=== PATIENT | female | born 1945 | race Hispanic/Latino ===

== ENCOUNTER 2019-06-07 23:24 | Inpatient (IN) | payer SELFPAY ==
--- NOTE | 2019-06-07 23:58 | RAD ---
XR Chest 1 View Portable History: Chest pain Comparison: None. Findings: Lungs are hyperinflated. No pneumothorax. No effusion. Cardiac silhouette and mediastinal c ontours appear within normal limits. Scarring both lung bases. No acute osseous abnormality. Impression: Lung hyperinflation suggesting obstructive pulmonary disease otherwise no acute intrathor acic abnormality.
[2019-06-08] MEDS ORDERED: methylPREDNISolone Sod Succ/PF 125 MG/2 ML VIAL ONE (00:03)
[2019-06-08 00:18] LABS: #Eosinphils 0.9 thou/uL (0.0-0.7); #Lymphocytes 3.3 thou/uL (1.20-3.40); #Monocytes 1.4 thou/uL (0.11-0.59); #Neutrophils 5.6 thou/uL (1.40-6.50); %Basophils 0.4 % (0.0-1.0); %Eosinophils 8.3 % (0.0-10.0); %Lymphocytes 29.2 % (21.0-51.0); %Monocytes 12.5 % (0.0-10.0); %Neutrophils 49.5 % (42.0-75.0); Hemoglobin 12.3 g/dL (12.0-16.0); Mean Corpuscular HGB CONC 34.5 g/dL (32.0-36.0); Mean Corpuscular Volume 95.8 fL (78.0-98.0); Mean Platelet Volume 7.3 fL (7.4-10.4); Platelet Count 484 thou/uL (130-400); RBC Distribution Width 10.5 % (11.5-14.5); Red Blood Cell (RBC) Count 3.72 mill/uL (4.20-5.40); White Blood Cell (WBC) Count 11.3 thou/uL (4.8-10.8)
[2019-06-08 00:32] LABS: ALT (SGPT) 11 U/L (8-55); AST (SGOT) 18 U/L (5-34); Alkaline Phosphatase 122 U/L (40-150); Anion Gap 15 mmol/L (10-20); BUN (Urea Nitrogen) 28 mg/dL (9.8-20.1); Bilirubin, Total 0.2 mg/dL (0.2-1.2); CK (CPK) 46 U/L (29-168); Calc. Creatinine Clearance 0 mL/min (70-130); Calcium 9.5 mg/dL (7.8-10.44); Carbon Dioxide 23 mmol/L (23-31); Chloride 101 mmol/L (98-107); Estimated GFR-MDRD 25; Globulin 3.4 g/dL (2.4-3.5); Glucose 132 mg/dL (83-110); Lipase 92 U/L (8-78); Potassium 4.1 mmol/L (3.5-5.1); Protein, Total 7.4 g/dL (6.0-8.3); Sodium 135 mmol/L (136-145)
[2019-06-08] MEDS ORDERED: Aspirin Chewable 81 MG TAB ONE (00:50)
[2019-06-08] MEDS ORDERED: Acetaminophen 325 MG TAB PO PRN (01:36)
--- NOTE | 2019-06-08 01:45 | PDOC.FPRHP ---
- History of Present Illness Chief Complaint: SOB, cough History of Present Illness: 74 y/o F with pmhx of asthma, and bronchitis presents to the ED with SOB and cough that worsened 06/07 at 1999. She states she has been in the hospital for "asthma" X3 times over the past X3 years, last one being X6 months ago. PT is from [place], and has cooked her entire life on a wood burning stove. She has no prior exposure to smoking or second hand smoke. Pt has a productive cough, with increased sputum production, white in color. Pt denies any N/V/D. Pt has associated chest pain that radiates to her back. She denies any diaphoresis, but admits to occasional dizziness without LOC with this pain. ED Course: Pt has O2 saturation in the 80's on arrival. Given duonebs and NC O2, brought saturation up to 96%. Given Levoquin in the ED. Received ASA. No CTA ordered because CKD. - Allergies/Adverse Reactions Allergies Allergy/AdvReac Type Severity Reaction Status Date / Time No Known Drug Allergies Allergy Verified 06/08/19 02:36 - History PMHx: Bronchitis, Asthma PSHx: None FHx: Father had asthma Social: from [place], cooks on wood fire oven. Denies any smoking, etoh, and drug use. - Review of Systems General: reports: night sweats. denies: fever/chills, fatigue ENT: denies: nasal congestion, rhinorrhea Respiratory: reports: cough, congestion, shortness of breath Cardiovascular: reports: chest pain. denies: palpitation, edema, paroxysmal nocturnal dyspnea, orthopnea Gastrointestinal: reports: nausea. denies: vomiting, diarrhea, constipation, abdominal pain Genitourinary: denies: incontinence, dysuria Skin: denies: rashes, jaundice Musculoskeletal: denies: pain, swelling Neurological: denies: numbness, syncope - Vital signs BP: 159/88 HR: 100 RR: 20 Tmax: Pox: 97% on 2L NC Wt: 42 kg - Physical Exam Constitutional: NAD, awake, alert and oriented, well developed HEENT: normocephalic and atraumatic, PERRLA, EOMI, conjunctiva clear, no scleral icterus, grossly normal vision, grossly normal hearing, MMM, oropharynx clear Neck: supple, FROM, trachea midline, no LAD, no JVD Chest: no-tender to palpation, no lesions Heart: RRR, normal S1/S2, no murmurs/rubs/gallops, pulses present, no edema Lungs: no respiratory distress, no rales/rhonchi, no retractions -Lungs: Diminished breath sounds diffusely Abdomen: soft, bowel sounds present, no masses/distention -Abdomen: slightly tender to palpation in epigastric area. Musculoskeletal: normal structure, normal tone, ROM grossly normal Neurological: no focal deficit, normal sensation Skin: no rash/lesions, good turgor, no jaundice Heme/Lymphatic: no unusual bruising or bleeding, no purpura, no petechia Psychiatric: normal mood and affect, good judgment and insight, intact recent and remote memory FMR H&P: Results - Labs Result Diagrams: 06/07/19 00:01 06/08/19 01:56 Lab results: WBC 11.3 thou/uL (4.8-10.8) H 06/07/19 00:01 Hgb 12.3 g/dL (12.0-16.0) 06/07/19 00:01 Hct 35.6 % (36.0-47.0) L 06/07/19 00:01 MCV 95.8 fL (78.0-98.0) 06/07/19 00:01 Plt Count 484 thou/uL (130-400) H 06/07/19 00:01 Neutrophils % 49.5 % (42.0-75.0) 06/07/19 00:01 Sodium 135 mmol/L (136-145) L 06/07/19 00:01 Potassium 4.1 mmol/L (3.5-5.1) 06/07/19 00:01 Chloride 101 mmol/L (98-107) 06/07/19 00:01 Carbon Dioxide 23 mmol/L (23-31) 06/07/19 00:01 BUN 28 mg/dL (9.8-20.1) H 06/07/19 00:01 Creatinine 1.95 mg/dL (0.6-1.1) H 06/07/19 00:01 Glucose 132 mg/dL (83-110) H 06/07/19 00:01 Calcium 9.5 mg/dL (7.8-10.44) 06/07/19 00:01 Total Bilirubin 0.2 mg/dL (0.2-1.2) 06/07/19 00:01 AST 18 U/L (5-34) 06/07/19 00:01 ALT 11 U/L (8-55) 06/07/19 00:01 Alkaline Phosphatase 122 U/L (40-150) 06/07/19 00:01 Creatine Kinase 46 U/L (29-168) 06/07/19 00:01 Serum Total Protein 7.4 g/dL (6.0-8.3) 06/07/19 00:01 Albumin 4.0 g/dL (3.4-4.8) 06/07/19 00:01 Lipase 92 U/L (8-78) H 06/07/19 00:01 - EKG Interpretation EKG: Sinus Tach with PVC's - Radiology Interpretation Chest x-ray Status: report reviewed by me FMR H&P: A/P - Problem List (1) Acute respiratory failure with hypoxia Current Visit: Yes Status: Acute Code(s): J96.01 - ACUTE RESPIRATORY FAILURE WITH HYPOXIA (2) COPD exacerbation Current Visit: Yes Status: Acute Code(s): J44.1 - CHRONIC OBSTRUCTIVE PULMONARY DISEASE W (ACUTE) EXACERBATION (3) History of asthma Current Visit: Yes Status: Acute Code(s): Z87.09 - PERSONAL HISTORY OF OTHER DISEASES OF THE RESPIRATORY SYSTEM (4) CKD stage 4 Current Visit: Yes Status: Acute - Plan 74 y/o F admitted to inpatient for Acute Hypoxic respiratory Failure, most likely secondary to COPD exacerbation. 1. Acute Hypoxic Respiratory Failure - Continue O2 per nasal canula as needed - Ordered Duonebs Q4H deysi, and Q4H PRN - Ordered D-dimer - Consider V/Q Scan if D-Dimer elevated. CTA contraindicated in her CKD. 2. Acute COPD Exacerbation Vs Asthma Exacerbation - Increased Sputum production, cough, age >65 - Continue duonebs - Ordered Rocephin Q24H 3. CKD Stage 4 - GFR 25 - NS IVF @ 60 ml/hr 4. Hx of Asthma Disposition/LOS: Stable Continue Duonebs and antibiotic therapy. Monitor for respiratory improvement. Stay at least 2 days FMR H&P: Upper Level - Pertinent history [place] 74 yo female presents for evaluation of cough, SOB, and chest pain. Patient is a [place] of [place] and just recently came to [place] to visit. Patient has no smoking history, but cooked for 50 years over a wood burning stove/fireplace. She has had lung problems for about the last 3-4 years and her family had her discontinue cooking due to that reason. Please see human resource intern note above for further information. General: Female appears stated age, NAD HEENT: Moist mucous membranes CV: Tachycardic rate and regular rhythm, no murmurs Respiratory: CTA-bilaterally, diminished breath sounds throughout. Abdomen: Soft, nontender, no distention Normoactive BS Extremities: Moving all four symmetrically, no edema Neuro: No focal deficits Psych: Responds appropriately. Strictly Barbadian speaking - Plan Date/Time: 06/08/19 7235 I, Kaleb Peña MD, have evaluated this patient and agree with findings/ plan as outlined by human resource intern resident. Pertinent changes/additions are listed here. 1. COPD exacerbation - Symptoms improved with treatment in ED - Order D-dimer and if positive will get V/Q scan due to renal function to rule out PE - Continue steroids - Will change antibiotics to Rocephin due to renal impairment. - Ordered Quantiferon Gold to rule out TB 2. Chest Pain - Unlikely cardiac in nature - Continue to trend troponins - Likely secondary to lung etiology 3. CKD - CKD vs MATTHIEU - No known baseline - Recheck BMP - Gentle IVF NS @ 60 4. Hyponatremia - 135 on admission - IVF as above - Recheck BMP PCP: OOT CODE STATUS: FULL CODE Disposition: Stable, will admit for continued monitoring and treatment. Addendum - Attending - Attending Attestation Date/Time: 06/08/19 7636 I personally evaluated the patient and discussed the management with Dr. Frank. I agree with and repeated the History, Examination, Assessment and Plan documented above with any addition or exceptions noted below. Patient says she is markedly improved form admission. Denies any cp/sob. Does still have some cough. No recent f/c/hemoptysis. On exam she has a prolonged exp phase with wheezes. COPD exacerbation -d/c rocephin and change to azithro -continue nebs -will need controller upon d/c -I feel PE very unlikely, but d-dimer elevated and v/q order noted and performed MATTHIEU vs CKD -will send PTH in AM Hopeful d/c in AM
[2019-06-08 02:26] VITALS: BMI 19.5
[2019-06-08] MEDS ORDERED: Sodium Chloride 0.9% 1,000 ML IV SCH (02:30)
[2019-06-08 02:36] LABS: Anion Gap 15 mmol/L (10-20); BUN (Urea Nitrogen) 27 mg/dL (9.8-20.1); Calc. Creatinine Clearance 18 mL/min (70-130); Calcium 8.2 mg/dL (7.8-10.44); Carbon Dioxide 19 mmol/L (23-31); Chloride 106 mmol/L (98-107); Estimated GFR-MDRD 30; Glucose 208 mg/dL (83-110); Potassium 3.7 mmol/L (3.5-5.1); Sodium 136 mmol/L (136-145)
[2019-06-08] MEDS ORDERED: cefTRIAXone\\ROCEPHIN 1 GM in Sodium Chloride 0.9% 100 ML IVPB SCH (03:00)
[2019-06-08] MEDS ORDERED: methylPREDNISolone Sod Succ 40 MG VIAL IVP SCH ×2 (06:00)
[2019-06-08] MEDS ORDERED: Prevnar 13-Val Conj/PF 0.5 ML SYRINGE IM ONE (09:00)
[2019-06-08] MEDS ORDERED: ISOVUE-370 76%-LOCM 1 ML ONE (09:40)
[2019-06-08] MEDS: Heparin 5,000 UNITS/ML VIAL SC SCH ×3 (10:01→20:41)
--- NOTE | 2019-06-08 12:04 | NM ---
VQ SCAN: Date: 06/08/19 HISTORY: Elevated D-Dimer. TECHNIQUE: A ventilation perfusion scan was performed using 9.6 mCi Xenon-133 by inhalation for the ventilation study followed by the intravenous administration of 6.6 mCi technetium-99m MAA for the perfusion scan . FINDINGS: Correlation is made with the chest radiograph from the previous night. There is fairly homogeneous tracer distribution at the lung rey on the ventilation study, with tra cer retention on the washout phase consistent with COPD. There is inhomogeneous tracer distribution in the lungs on the perfusion scan with nonsegmental defec ts. There is a subsegmental mismatched perfusion defect in the lateral basal segment of the left lower lo be. IMPRESSION: Intermediate probability for pulmonary embolism. POS: CONY
--- NOTE | 2019-06-08 15:17 | CT ---
CT PULMONARY ANGIOGRAM WITH IV CONTRAST AND 3-D POSTPROCESSING: HISTORY:Chest pain, shortness of breath, abnormal VQ scan from same date FINDINGS: There is good contrast opacification of the pulmonary arterial vasculature without filling defects to suggest pulmonary embolism. The thoracic aorta is well opacified without aneurysm or dissection. No pleural or pericardial effusions are seen. No pneumothoraces, focal areas of consolidation are noted. There is 8 mm nodule in the left lower lob e. There are degenerative changes in the spine. IMPRESSION: 1. No CT evidence of pulmonary embolism. 2. Indeterminate 8 mm nodule in the left lower lobe. This should be evaluated with a PET scan. Code T Code LN
[2019-06-08] MEDS: guaiFENesin ER 600 MG TAB PO SCH (20:42)
[2019-06-08] MEDS ORDERED: Docusate 100 MG CAP PO PRN (21:50)
[2019-06-08] MEDS ORDERED: Dextrose 50% Abboject 50 ML SYRINGE IVP PRN (22:41)
[2019-06-08] MEDS ORDERED: HumaLOG 300 UNITS/3 ML VIAL SC PRN (22:41)
[2019-06-08] MEDS ORDERED: Dextrose 5% in Water 1,000 ML IV PRN (22:41)
[2019-06-09 07:08] LABS: Anion Gap 16 mmol/L (10-20); BUN (Urea Nitrogen) 34 mg/dL (9.8-20.1); Calc. Creatinine Clearance 19 mL/min (70-130); Calcium 9.3 mg/dL (7.8-10.44); Carbon Dioxide 22 mmol/L (23-31); Chloride 99 mmol/L (98-107); Estimated GFR-MDRD 31; Glucose 165 mg/dL (83-110); Potassium 4.6 mmol/L (3.5-5.1); Sodium 132 mmol/L (136-145)
[2019-06-09] MEDS ORDERED: predniSONE 20 MG TAB PO SCH (08:00)
[2019-06-09] MEDS ORDERED: Azithromycin 250 MG TAB PO SCH (09:00)
--- NOTE | 2019-06-09 09:08 | PDOC.FM ---
- Subjective Subjective: pt resting comfortably in bed, denies SOB or CP - Objective Vital Signs & Weight: Vital Signs (12 hours) Temp Pulse Resp BP BP Pulse Ox 06/09/19 07:28 97 06/09/19 07:27 94 16 97 06/09/19 07:16 98.1 F 103 H 18 105/51 L 95 06/09/19 04:00 98.2 F 101 H 18 111/56 L 99 06/09/19 03:14 103 H 16 96 06/08/19 23:30 110 H 16 95 Weight Admit Weight 38.187 kg Weight 39.122 kg I&O: 06/08/19 06/09/19 06/10/19 06:59 06:59 06:59 Intake Total 300 1760 Output Total 450 1800 Balance -150 -40 Result Diagrams: 06/07/19 00:01 06/09/19 05:32 Phys Exam - Physical Examination Constitutional: NAD HEENT: moist MMs Neck: no JVD Respiratory: clear to auscultation bilateral Cardiovascular: RRR, no significant murmur Gastrointestinal: no distention Musculoskeletal: pulses present Neurological: moves all 4 limbs Psychiatric: normal affect Dx/Plan (1) CKD stage 4 Status: Acute (2) COPD exacerbation Code(s): J44.1 - CHRONIC OBSTRUCTIVE PULMONARY DISEASE W (ACUTE) EXACERBATION Status: Acute (3) History of asthma Code(s): Z87.09 - PERSONAL HISTORY OF OTHER DISEASES OF THE RESPIRATORY SYSTEM Status: Acute - Plan Plan: COPD exacerbation - Symptoms improved with treatment in ED, Continue steroids/azithro - CTA neg for PE - proventil for outpt use, mucinex Chest Pain - Likely secondary to lung etiology CKD vs MATTHIEU - stable, most likely CKD - outpt workup Hyponatremia- resolved PCP: OOT CODE STATUS: FULL CODE Disposition: DC today Addendum - Attending - Attending Attestation Date/Time: 06/09/19 8962 I personally evaluated the patient and discussed the management with Dr. Lopez. I agree with and repeated the History, Examination, Assessment and Plan documented above with any addition or exceptions noted below. No f/c/cp/sob. Decreased cough. She says she feels markedly better. Her exam is now with clear lungs. COPD exac -complete course of pred/azithro -will rx generic inh steroid as tiotropium likely too expensive -albuterol PRN CKD III -follow up with PCP Lung nodule -extensive discussion with family in [place] and [place] that radiology has recommended a PET scan. They live close to [facility] and believe they can follow up with a scan there. I have discussed the possibility of malignancy and they voice understanding and they prefer to follow up there. Hyperglycemia can be follow by PCP. She has a flight in the next week. I have asked for a 6mwt to be performed and will rx oxygen if necessary.
[2019-06-09] MEDS: guaiFENesin ER 600 MG TAB PO SCH (10:13)
[2019-06-09] MEDS: Heparin 5,000 UNITS/ML VIAL SC SCH ×2 (10:14→15:55)
[2019-06-09 16:36] VITALS: BP 131/64; TEMP 98
--- NOTE | 2019-06-10 23:14 | PQF ---
SHERRY CROCKER BRANDON [id number] CLINICAL DOCUMENTATION CLARIFICATION FORM: POST DISCHARGE Addendum to original discharge summary date: ____ Late entry note date: __ DATE: 06/08/19 ATTN: Herman Shfefield Please exercise your independent, professional judgment in responding to the clarification form. Clinical indicators are provided on the bottom of this form for your review Can you please further specify if Acute hypoxic respiratory failure is ruled in or ruled out? Acute hypoxic respiratory failure [ x ] Ruled in diagnosis [ ] Continue to treat [ x ] Resolved [ ] Ruled out diagnosis [ ] Cannot rule out diagnosis [ ] Other diagnosis please specify [ ] Unable to determine In addition, please specify: Present on Admission (POA): [ x ] Yes [ ] No [ ] Unable to determine For continuity of documentation, please document condition throughout progress notes and discharge summary. Thank You. CLINICAL INDICATORS ED Provider Report 06/08 pg2.- "Physical Exam: Hypoxic" ED Provider Report 06/08 pg2- "Respiratory exam included findings of moderate respiratory distress" ED Provider Report 06/08 pg4- "Diagnosis: Acute COPD Exacerbation, additional: chest pain, hypoxia" Family H and P 06/08 pg.1- "Pt has O2 saturation in the 80's on arrival" Family H and P 06/08 pg.1- "Given duonebs and NC O2, brought saturation up to 96% " Family H and P 06/08 pg.2- "Lungs: Diminished breath sounds diffusely" Family H and P 06/08 pg.4- "74 yo F admitted to inpatient for Acute hypoxic respiratory failure, most likely secondary to COPD exacerbation" RISK FACTORS Asthma-Family H and P 06/08 pg.1 Bronchitis-Family H and P 06/08 pg.1 COPD exacerbation- Family H and P 06/08 pg.4 TREATMENTS Chest X-ray 06/07 Pulmonary Perfusion Imaging 06/08 Chest/Thorax CTA 06/08 NC Oxygen- H and P pg.1 Duonebs Q4H deysi, and Q4H PRN- H and P pg.4 (This form is maintained as a part of the permanent medical record) 2014 [employer]. All Rights Reserved [email or web address] [not provided] [email or web address]
== END 2019-06-09 16:30 | disposition home or self-care (01) | DRG 189 ==
LOC: ERS 23:24 → 2NO 06-08 02:15
PROVIDERS: ADMIT Family Medicine; ATTEND Family Medicine
DX: J96.01 Acute respiratory failure with hypoxia (principal); J44.1 Chronic obstructive pulmonary disease with (acute) exacerbation; N18.4 Chronic kidney disease, stage 4 (severe); N17.9 Acute kidney failure, unspecified; E87.1 Hypo-osmolality and hyponatremia; R73.9 Hyperglycemia, unspecified; R91.1 Solitary pulmonary nodule; Z79.51 Long term (current) use of inhaled steroids
CPT/HCPCS: 36415; 36416; 71045; 71275; 78582; 80048; 80053; 82550; 83690; 83880; 84145; 84484; 85025; 85379; 86480; 93005; 94640; A9540; A9558; J0696; J1644; J1956; J2920; J2930; J3490; J7512; J7620; Q9966

== ENCOUNTER 2022-03-21 08:17 | Inpatient (IN) | payer SELFPAY ==
[2022-03-21 08:54] LABS: #Eosinphils 0.2 thou/uL (0.0-0.7); #Lymphocytes 1.6 thou/uL (1.20-3.40); #Monocytes 0.7 thou/uL (0.11-0.59); #Neutrophils 10.2 thou/uL (1.40-6.50); %Basophils 0.2 % (0.0-1.0); %Eosinophils 1.6 % (0.0-10.0); %Lymphocytes 12.5 % (21.0-51.0); %Monocytes 5.6 % (0.0-10.0); Hemoglobin 11.4 g/dL (12.0-16.0); Mean Corpuscular HGB CONC 32.7 g/dL (32.0-36.0); Mean Corpuscular Hemoglobin 33.1 pg (27.0-31.0); Mean Platelet Volume 6.4 fL (7.4-10.4); Platelet Count 412 thou/uL (130-400); Red Blood Cell (RBC) Count 3.43 mill/uL (4.20-5.40); White Blood Cell (WBC) Count 12.8 thou/uL (4.8-10.8)
[2022-03-21] MEDS ORDERED: Albuterol Sulfate 1.25 MG/3 ML NEB ONE (09:00)
[2022-03-21] MEDS ORDERED: methylPREDNISolone Sod Succ/PF 125 MG/2 ML VIAL ONE (09:00)
[2022-03-21 09:13] LABS: ALT (SGPT) 47 U/L (8-55); AST (SGOT) 48 U/L (5-34); Albumin 3.4 g/dL (3.4-4.8); Alkaline Phosphatase 115 U/L (40-110); Anion Gap 13 mmol/L (10-20); BUN (Urea Nitrogen) 42 mg/dL (9.8-20.1); Bilirubin, Total 0.4 mg/dL (0.2-1.2); Calc. Creatinine Clearance 0 mL/min (70-130); Calcium 9.4 mg/dL (7.8-10.44); Carbon Dioxide 25 mmol/L (23-31); Chloride 102 mmol/L (98-107); Globulin 3.5 g/dL (2.4-3.5); Glucose 139 mg/dL (83-110); Lipase 87 U/L (8-78); Protein, Total 6.9 g/dL (5.8-8.1); Sodium 136 mmol/L (136-145)
[2022-03-21 09:34] LABS: CKMB 4.3 ng/mL (0-6.6)
[2022-03-21] MEDS ORDERED: Aspirin Chewable 81 MG TAB ONE (10:05)
[2022-03-21 11:37] LABS: SARS-CoV-2 NAA Rapid Test Not Detected (NotDetected)
[2022-03-21] MEDS ORDERED: Acetaminophen 650 MG Suppository PR PRN (12:32)
[2022-03-21] MEDS ORDERED: Ondansetron PF 4 MG/2 ML Vial IVP PRN (12:32)
[2022-03-21] MEDS ORDERED: Ondansetron ODT 4 MG TAB PO PRN (12:32)
[2022-03-21] MEDS ORDERED: Nitroglycerin 0.4 MG TAB (25 Tab Bottle) SL PRN (12:34)
[2022-03-21] MEDS ORDERED: Dextrose 50% Abboject 50 ML SYRINGE SLOW IVP PRN (12:37)
[2022-03-21] MEDS ORDERED: Dextrose 5% in Water 1,000 ML IV PRN (12:37)
[2022-03-21 12:41] LABS: Troponin I 1.483 ng/mL (< 0.028)
[2022-03-21] MEDS ORDERED: Azithromycin 500 MG in Sodium Chloride 0.9% 250 ML 250 ML IVPB SCH (12:45)
[2022-03-21] MEDS ORDERED: Sodium Chloride 0.9% 1,000 ML IV SCH ×2 (12:45→14:46)
[2022-03-21] MEDS ORDERED: Magnesium 2 GM/50 ML(in water) 2 GM in Premix Bag 1 BAG IVPB SCH (12:45)
[2022-03-21] MEDS ORDERED: Enoxaparin Sodium 60 MG/0.6 ML SYRINGE ONE (13:45)
[2022-03-21] MEDS ORDERED: Nitroglycerin 50 MG/250 ML BOT 250 ML ONE (13:58)
[2022-03-21] MEDS: methylPREDNISolone Sod Succ 40 MG VIAL IVP SCH (17:41)
[2022-03-21] MEDS: HumaLOG 300 UNITS/3 ML VIAL SC PRN (17:51)
[2022-03-21] MEDS ORDERED: Nitroglycerin 50 MG/250 ML BOT 250 ML IVPB SCH (18:45)
[2022-03-21] MEDS ORDERED: Clopidogrel Bisulfate 75 MG TAB PO SCH (19:15)
[2022-03-21] MEDS: Atorvastatin Calcium 40 MG TAB PO SCH (20:30)
[2022-03-22] MEDS: methylPREDNISolone Sod Succ 40 MG VIAL IVP SCH ×5 (00:31→23:53)
[2022-03-22 03:31] LABS: #Lymphocytes 0.4 thou/uL (1.20-3.40); #Monocytes 0.2 thou/uL (0.11-0.59); #Neutrophils 5.8 thou/uL (1.40-6.50); %Eosinophils 0.3 % (0.0-10.0); %Lymphocytes 5.5 % (21.0-51.0); %Neutrophils 91.2 % (42.0-75.0); Hemoglobin 9.2 g/dL (12.0-16.0); Mean Corpuscular HGB CONC 33.4 g/dL (32.0-36.0); Mean Corpuscular Hemoglobin 33.7 pg (27.0-31.0); Mean Platelet Volume 6.6 fL (7.4-10.4); Platelet Count 343 thou/uL (130-400); RBC Distribution Width 11.9 % (11.5-14.5); Red Blood Cell (RBC) Count 2.74 mill/uL (4.20-5.40); White Blood Cell (WBC) Count 6.4 thou/uL (4.8-10.8)
[2022-03-22 03:49] LABS: Hemoglobin A1c 6.9 % (4.0-6.0)
[2022-03-22 03:55] LABS: Carbon Dioxide 19 mmol/L (23-31); Chloride 109 mmol/L (98-107); Potassium 3.8 mmol/L (3.5-5.1); Sodium 136 mmol/L (136-145)
[2022-03-22 03:56] LABS: Anion Gap 12 mmol/L (10-20); BUN (Urea Nitrogen) 38 mg/dL (9.8-20.1); Calc. Creatinine Clearance 21 mL/min (70-130); Calcium 8.6 mg/dL (7.8-10.44); Cardiac Risk 2.6 (Less than 4.5); Cholesterol 188 mg/dl (< 200 Desired); Glucose 216 mg/dL (83-110); HDL Cholesterol 73 mg/dL (>60 Neg Risk); LDL Cholesterol, Calculated 95 mg/dL; Triglycerides 99 mg/dL (Less than 150)
[2022-03-22] MEDS: HumaLOG 300 UNITS/3 ML VIAL SC PRN ×4 (05:57→20:19)
[2022-03-22] MEDS ORDERED: Communication Order-Pharmacy FS PRN (08:46)
[2022-03-22] MEDS ORDERED: Clopidogrel Bisulfate 75 MG TAB PO SCH (09:00)
[2022-03-22] MEDS ORDERED: Enoxaparin Sodium 40 MG/0.4 ML SYRINGE SC SCH ×2 (09:00)
[2022-03-22 09:24] LABS: Hemoglobin 9.2 g/dL (12.0-16.0); Platelet Count 350 thou/uL (130-400)
[2022-03-22] MEDS: Enoxaparin Sodium 40 MG/0.4 ML SYRINGE SC SCH (09:30)
[2022-03-22] MEDS: Acetaminophen 325 MG TAB PO PRN ×2 (09:41→14:44)
[2022-03-22] MEDS: Aspirin Chewable 81 MG TAB PO SCH (09:41)
[2022-03-22 11:16] LABS: Bacteria/HPF None Seen HPF (None Seen); Bilirubin Negative (Negative); Blood, Urine Negative (Negative); Clarity Clear (Clear); Glucose, Urine (Dipstick) 50 mg/dL (Negative); Ketone, Urine Negative (Negative); Leukocyte Negative Leu/uL (Negative); Nitrite Negative (Negative); Protein, Urine (Dipstick) 70 mg/dL (Neg-Trace); RBC/HPF 0-3 HPF (0-3); Specific Gravity, Urine 1.014 (1.002-1.036); Squamous Epithelial None Seen HPF (0-3); Urobilinogen Normal mg/dL (Less than 2); WBC/HPF 0-3 HPF (0-3); pH, Urine 5.5 (5.0-9.0)
[2022-03-22] MEDS ORDERED: methylPREDNISolone Sod Succ 40 MG VIAL ONE (12:03)
[2022-03-22] MEDS ORDERED: Azithromycin 500 MG in Sodium Chloride 0.9% 250 ML 250 ML IVPB SCH (20:00)
[2022-03-22] MEDS: Atorvastatin Calcium 40 MG TAB PO SCH (20:08)
[2022-03-22] MEDS: Famotidine 20 MG TAB PO SCH (20:12)
[2022-03-23] MEDS: HumaLOG 300 UNITS/3 ML VIAL SC PRN ×3 (05:53→20:18)
[2022-03-23] MEDS: methylPREDNISolone Sod Succ 40 MG VIAL IVP SCH (05:55)
[2022-03-23 07:53] LABS: #Lymphocytes 0.5 thou/uL (1.20-3.40); #Monocytes 0.2 thou/uL (0.11-0.59); #Neutrophils 8.3 thou/uL (1.40-6.50); %Eosinophils 0.2 % (0.0-10.0); %Lymphocytes 5.5 % (21.0-51.0); %Monocytes 2.3 % (0.0-10.0); Hemoglobin 9.4 g/dL (12.0-16.0); Mean Corpuscular Hemoglobin 33.9 pg (27.0-31.0); Mean Corpuscular Volume 99.5 fL (78.0-98.0); Mean Platelet Volume 6.7 fL (7.4-10.4); Platelet Count 377 thou/uL (130-400); Red Blood Cell (RBC) Count 2.76 mill/uL (4.20-5.40)
[2022-03-23 08:14] LABS: Anion Gap 11 mmol/L (10-20); BUN (Urea Nitrogen) 38 mg/dL (9.8-20.1); Calc. Creatinine Clearance 24 mL/min (70-130); Calcium 8.2 mg/dL (7.8-10.44); Carbon Dioxide 21 mmol/L (23-31); Chloride 106 mmol/L (98-107); Glucose 171 mg/dL (83-110); Potassium 3.4 mmol/L (3.5-5.1); Sodium 135 mmol/L (136-145)
[2022-03-23] MEDS: Acetaminophen 325 MG TAB PO PRN (09:14)
[2022-03-23] MEDS: guaiFENesin ER 600 MG TAB PO SCH ×2 (09:14→20:17)
[2022-03-23] MEDS: Aspirin Chewable 81 MG TAB PO SCH (09:14)
[2022-03-23] MEDS: Enoxaparin Sodium 40 MG/0.4 ML SYRINGE SC SCH (09:15)
[2022-03-23] MEDS ORDERED: Electrolyte Replacement Protocol 1 EACH FS SCH (10:00)
[2022-03-23] MEDS ORDERED: Electrolyte Replacement Protocol FS PRN (10:15)
[2022-03-23] MEDS ORDERED: Potassium Chloride 20 MEQ TAB PO SCH (12:00)
[2022-03-23] MEDS ORDERED: Magnesium 2 GM/50 ML(in water) 2 GM in Premix Bag 1 BAG IVPB SCH (12:00)
[2022-03-23] MEDS ORDERED: Communication Order-Pharmacy FS SCH (17:30)
[2022-03-23] MEDS: Sodium Chloride 0.9% 1,000 ML IV SCH (18:52)
[2022-03-23] MEDS: Atorvastatin Calcium 40 MG TAB PO SCH (20:17)
[2022-03-23] MEDS: Famotidine 20 MG TAB PO SCH (20:17)
[2022-03-24] MEDS: Sodium Chloride 0.9% 1,000 ML IV SCH (03:19)
[2022-03-24] MEDS: Aspirin Chewable 81 MG TAB PO SCH (05:32)
[2022-03-24] MEDS: guaiFENesin ER 600 MG TAB PO SCH ×2 (05:33→19:33)
[2022-03-24 05:50] LABS: #Eosinphils 0.1 thou/uL (0.0-0.7); #Lymphocytes 1.3 thou/uL (1.20-3.40); #Monocytes 0.8 thou/uL (0.11-0.59); #Neutrophils 12.3 thou/uL (1.40-6.50); %Basophils 0.1 % (0.0-1.0); %Eosinophils 0.6 % (0.0-10.0); %Lymphocytes 8.9 % (21.0-51.0); %Monocytes 5.5 % (0.0-10.0); Hemoglobin 9.8 g/dL (12.0-16.0); Mean Corpuscular HGB CONC 33.3 g/dL (32.0-36.0); Mean Corpuscular Hemoglobin 33.2 pg (27.0-31.0); Mean Corpuscular Volume 99.7 fL (78.0-98.0); Mean Platelet Volume 6.9 fL (7.4-10.4); Platelet Count 401 thou/uL (130-400); RBC Distribution Width 12.1 % (11.5-14.5); Red Blood Cell (RBC) Count 2.96 mill/uL (4.20-5.40); White Blood Cell (WBC) Count 14.5 thou/uL (4.8-10.8)
[2022-03-24 06:08] LABS: Anion Gap 12 mmol/L (10-20); BUN (Urea Nitrogen) 38 mg/dL (9.8-20.1); Calc. Creatinine Clearance 27 mL/min (70-130); Calcium 8.1 mg/dL (7.8-10.44); Carbon Dioxide 18 mmol/L (23-31); Chloride 102 mmol/L (98-107); Glucose 134 mg/dL (83-110); Magnesium 2.3 mg/dL (1.6-2.6); Potassium 4.3 mmol/L (3.5-5.1); Sodium 128 mmol/L (136-145)
[2022-03-24] MEDS ORDERED: Lidocaine 1% (PF) 30 ML VIAL ONE (09:23)
[2022-03-24] MEDS ORDERED: Furosemide 40 MG/4 ML VIAL ONE (10:28)
[2022-03-24] MEDS ORDERED: Furosemide 40 MG/4 ML VIAL SLOW IVP SCH ×2 (10:45→14:00)
[2022-03-24] MEDS ORDERED: cloNIDine 0.1 MG TAB PO PRN (12:05)
[2022-03-24] MEDS: hydrALAZINE 20 MG/ML VIAL SLOW IVP PRN (12:11)
[2022-03-24] MEDS ORDERED: Nitroglycerin 50 MG/250 ML BOT 250 ML IVPB SCH (12:15)
[2022-03-24] MEDS ORDERED: Lorazepam 2 MG/ML VIAL SLOW IVP SCH (12:30)
[2022-03-24] MEDS ORDERED: Enoxaparin Sodium 40 MG/0.4 ML SYRINGE SC SCH ×2 (12:36→23:59)
[2022-03-24] MEDS: Famotidine 20 MG TAB PO SCH (19:33)
[2022-03-24] MEDS: Atorvastatin Calcium 40 MG TAB PO SCH (19:33)
[2022-03-25] MEDS ORDERED: Lorazepam 2 MG/ML VIAL SLOW IVP SCH ×2 (00:15→06:45)
[2022-03-25 04:09] LABS: #Eosinphils 0.1 thou/uL (0.0-0.7); #Monocytes 0.4 thou/uL (0.11-0.59); #Neutrophils 9.5 thou/uL (1.40-6.50); %Basophils 0.1 % (0.0-1.0); %Eosinophils 0.9 % (0.0-10.0); %Lymphocytes 9.1 % (21.0-51.0); %Monocytes 3.9 % (0.0-10.0); %Neutrophils 86.1 % (42.0-75.0); Mean Corpuscular HGB CONC 33.8 g/dL (32.0-36.0); Mean Corpuscular Hemoglobin 33.4 pg (27.0-31.0); Mean Corpuscular Volume 98.8 fL (78.0-98.0); Mean Platelet Volume 6.9 fL (7.4-10.4); Platelet Count 371 thou/uL (130-400); RBC Distribution Width 12.3 % (11.5-14.5); Red Blood Cell (RBC) Count 3.28 mill/uL (4.20-5.40)
[2022-03-25 04:37] LABS: ALT (SGPT) 843 U/L (8-55); AST (SGOT) 580 U/L (5-34); Alkaline Phosphatase 86 U/L (40-110); Anion Gap 18 mmol/L (10-20); BUN (Urea Nitrogen) 44 mg/dL (9.8-20.1); Bilirubin, Total 0.7 mg/dL (0.2-1.2); Calc. Creatinine Clearance 21 mL/min (70-130); Calcium 8.9 mg/dL (7.8-10.44); Carbon Dioxide 20 mmol/L (23-31); Chloride 98 mmol/L (98-107); Globulin 2.6 g/dL (2.4-3.5); Glucose 99 mg/dL (83-110); Potassium 3.7 mmol/L (3.5-5.1); Protein, Total 5.6 g/dL (5.8-8.1); Sodium 132 mmol/L (136-145)
[2022-03-25] MEDS ORDERED: Magnesium 2 GM/50 ML(in water) 2 GM in Premix Bag 1 BAG IVPB SCH (08:00)
[2022-03-25] MEDS: guaiFENesin ER 600 MG TAB PO SCH ×2 (09:12→21:41)
[2022-03-25] MEDS: Aspirin Chewable 81 MG TAB PO SCH (09:12)
[2022-03-25] MEDS ORDERED: Furosemide 40 MG/4 ML VIAL SLOW IVP SCH (09:15)
[2022-03-25] MEDS ORDERED: Fentanyl 100 MCG/2 ML VIAL ONE (10:49)
[2022-03-25] MEDS ORDERED: EPINEPHrine 1 MG/10 ML Abboject SYRINGE ONE (10:51)
[2022-03-25] MEDS ORDERED: EPINEPHrine 1 MG/ML AMP ONE (10:51)
[2022-03-25] MEDS ORDERED: Fentanyl BOLUS 250 ML IVPB PRN (11:15)
[2022-03-25] MEDS ORDERED: Ventilator Sedation Protocol 1 EACH FS SCH (11:15)
[2022-03-25] MEDS ORDERED: DISCONTINUE PREVIOUS NARCOTIC PAIN MEDICATIONS AND BENZODIAZEPINES FS SCH (11:15)
[2022-03-25] MEDS ORDERED: Lorazepam 2 MG/ML VIAL SLOW IVP PRN (11:15)
[2022-03-25] MEDS ORDERED: Propofol BOLUS 1,000 MG/100 ML VIAL IV PRN (11:15)
[2022-03-25] MEDS ORDERED: Propofol 1,000 MG/100 ML VIAL IV PRN (11:15)
[2022-03-25] MEDS: fentaNYL Citrate-0.9 % NaCl/PF 100 ML IV SCH (11:35)
[2022-03-25 11:44] LABS: Actual Bicarbonate (HCO3a) 25.1 mEq/L (22-28); Base Excess (BEa) 0.7 mEq/L (-2.0 to +3.0); CO2 Tension 39.7 mmHg (35.0-45.0); Calcium, Ionized (arterial) 1.13 mmol/L (1.12-1.30); Carboxyhemoglobin (COHb) 0.2 gm% (0.0-3.0); Hemoglobin (Hb) 12.8 g/dL (12.0-16.0); O2 Tension (PaO2), arterial 97.7 mmHg (> 70.0); Potassium - ABG Lab 3.41 mmol/L (3.70-5.30); pH, Arterial 7.42 (7.35-7.45)
[2022-03-25 11:45] LABS: ALV-art Gradient 137.875 mmHg (0-20); Puncture Site RRA
[2022-03-25] MEDS ORDERED: Fentanyl 100 MCG/2 ML VIAL SLOW IVP SCH (12:00)
[2022-03-25] MEDS ORDERED: Rocuronium Bromide 10 MG/ML (10ML VIAL) IVP SCH (12:00)
[2022-03-25] MEDS ORDERED: Enoxaparin Sodium 40 MG/0.4 ML SYRINGE SC SCH (13:45)
[2022-03-25] MEDS: Sodium Chloride 0.9% 1,000 ML IV SCH (15:01)
[2022-03-25] MEDS: Acetaminophen 325 MG TAB PO PRN (20:46)
[2022-03-25] MEDS: Atorvastatin Calcium 40 MG TAB PO SCH (20:47)
[2022-03-25] MEDS: Famotidine 20 MG TAB PO SCH (20:47)
[2022-03-25] MEDS ORDERED: Lactated Ringer's 1,000 ML IV PRN (21:19)
[2022-03-25] MEDS ORDERED: Norepinephrine 8 MG/0.9% NS 250 ML IVPB SCH (22:15)
[2022-03-26] MEDS: Sodium Chloride 0.9% 1,000 ML IV SCH ×2 (04:55→18:08)
[2022-03-26 05:22] LABS: #Eosinphils 0.1 thou/uL (0.0-0.7); #Lymphocytes 1.4 thou/uL (1.20-3.40); #Monocytes 0.2 thou/uL (0.11-0.59); #Neutrophils 16.1 thou/uL (1.40-6.50); %Basophils 0.1 % (0.0-1.0); %Eosinophils 0.6 % (0.0-10.0); %Lymphocytes 7.6 % (21.0-51.0); %Neutrophils 90.8 % (42.0-75.0); Hemoglobin 11.1 g/dL (12.0-16.0); Mean Corpuscular HGB CONC 31.9 g/dL (32.0-36.0); Mean Corpuscular Hemoglobin 33.6 pg (27.0-31.0); Mean Platelet Volume 7.2 fL (7.4-10.4); Platelet Count 318 thou/uL (130-400); RBC Distribution Width 12.9 % (11.5-14.5); White Blood Cell (WBC) Count 17.8 thou/uL (4.8-10.8)
[2022-03-26 05:50] LABS: ALT (SGPT) 573 U/L (8-55); AST (SGOT) 215 U/L (5-34); Albumin 2.4 g/dL (3.4-4.8); Alkaline Phosphatase 83 U/L (40-110); Anion Gap 20 mmol/L (10-20); BUN (Urea Nitrogen) 44 mg/dL (9.8-20.1); Bilirubin, Total 1.3 mg/dL (0.2-1.2); Calc. Creatinine Clearance 17 mL/min (70-130); Calcium 8.2 mg/dL (7.8-10.44); Carbon Dioxide 18 mmol/L (23-31); Chloride 102 mmol/L (98-107); Globulin 2.5 g/dL (2.4-3.5); Potassium 3.5 mmol/L (3.5-5.1); Protein, Total 4.9 g/dL (5.8-8.1); Sodium 136 mmol/L (136-145)
[2022-03-26 05:53] LABS: Glucose 52 mg/dL (83-110)
[2022-03-26] MEDS ORDERED: Dextrose 50% Abboject 50 ML SYRINGE ONE (05:55)
[2022-03-26 07:20] LABS: Actual Bicarbonate (HCO3v) 20 mEq/L (22-28); Base Excess -2.1 mEq/L (-2.0 to +3.0); Calcium, Ionized (venous) 0.94 mmol/L (1.16-1.32); Chloride (VBG) 102 mmol/L (98-106); Hemoglobin (Hb) 11.8 g/dL (11.7-16.1); Sodium 128.1 mmol/L (133-146); pH (venous) 7.51 (7.32-7.43)
[2022-03-26] MEDS: Communication Order-Pharmacy FS SCH ×2 (07:23→18:08)
[2022-03-26] MEDS ORDERED: Sodium Chloride 0.9% 250 ML 250 ML IVPB SCH (07:30)
[2022-03-26] MEDS ORDERED: Potassium Chloride 20 MEQ TAB PO SCH (08:00)
[2022-03-26] MEDS: Aspirin Chewable 81 MG TAB PO SCH (08:45)
[2022-03-26] MEDS: guaiFENesin ER 600 MG TAB PO SCH ×2 (08:45→21:35)
[2022-03-26] MEDS ORDERED: Enoxaparin Sodium 40 MG/0.4 ML SYRINGE SC SCH ×2 (09:00→16:30)
[2022-03-26] MEDS: fentaNYL Citrate-0.9 % NaCl/PF 100 ML IV SCH (09:01)
[2022-03-26] MEDS: Morphine 2 MG/ML VIAL SLOW IVP PRN (09:01)
[2022-03-26] MEDS: cefTRIAXone\\ROCEPHIN 1 GM in Sodium Chloride 0.9% 100 ML IVPB SCH (11:55)
[2022-03-26] MEDS: Acetaminophen 325 MG TAB PO PRN (16:44)
[2022-03-26] MEDS ORDERED: Norepinephrine 8 MG/0.9% NS 0 ML ONE (17:47)
[2022-03-26] MEDS ORDERED: Vancomycin HCl 750 MG in Sodium Chloride 0.9% 250 ML 250 ML IVPB SCH (18:30)
[2022-03-26] MEDS: Vasopressin 20 UNIT, Admixture Fee 1 EACH in Sodium Chloride 0.9% 50 ML IV SCH (18:57)
[2022-03-26] MEDS ORDERED: Hydrocortisone Sod Succ/PF 100 mg/2 ml Vial IVP SCH (19:00)
[2022-03-26] MEDS ORDERED: GUAIFENESIN DM SF 5 ML UDCUP PO PRN (21:25)
[2022-03-26] MEDS: Senokot S 8.6-50 MG TAB PO SCH (21:29)
[2022-03-26] MEDS ORDERED: Sodium Bicarbonate 150 MEQ in Dextrose 5% in Water 1,000 ML IV SCH (21:30)
[2022-03-26] MEDS: Atorvastatin Calcium 40 MG TAB PO SCH (21:30)
[2022-03-26] MEDS: Famotidine 20 MG TAB PO SCH (21:35)
[2022-03-26 22:01] LABS: Anion Gap 14 mmol/L (10-20); BUN (Urea Nitrogen) 40 mg/dL (9.8-20.1); Calc. Creatinine Clearance 17 mL/min (70-130); Calcium 7.9 mg/dL (7.8-10.44); Carbon Dioxide 19 mmol/L (23-31); Chloride 108 mmol/L (98-107); Glucose 116 mg/dL (83-110); Potassium 4.2 mmol/L (3.5-5.1); Sodium 137 mmol/L (136-145)
[2022-03-26] MEDS: Albumin 25% 25 GM/100 ML BOT IVPB SCH (22:33)
[2022-03-27] MEDS: Hydrocortisone Sod Succ/PF 100 mg/2 ml Vial IVP SCH ×4 (00:59→17:01)
[2022-03-27] MEDS: Albumin 25% 25 GM/100 ML BOT IVPB SCH ×2 (03:02→09:47)
[2022-03-27] MEDS: Vasopressin 20 UNIT, Admixture Fee 1 EACH in Sodium Chloride 0.9% 50 ML IV SCH ×2 (03:03→10:45)
[2022-03-27 04:56] LABS: Phosphorus 3.8 mg/dL (2.3-4.7)
[2022-03-27 04:59] LABS: ALT (SGPT) 403 U/L (8-55); AST (SGOT) 163 U/L (5-34); Albumin 3.2 g/dL (3.4-4.8); Alkaline Phosphatase 65 U/L (40-110); Anion Gap 16 mmol/L (10-20); BUN (Urea Nitrogen) 40 mg/dL (9.8-20.1); Bilirubin, Total 1.3 mg/dL (0.2-1.2); Calc. Creatinine Clearance 16 mL/min (70-130); Calcium 8.5 mg/dL (7.8-10.44); Carbon Dioxide 22 mmol/L (23-31); Chloride 102 mmol/L (98-107); Glucose 355 mg/dL (83-110); Magnesium 1.9 mg/dL (1.6-2.6); Protein, Total 5.2 g/dL (5.8-8.1); Sodium 136 mmol/L (136-145)
[2022-03-27 05:27] LABS: #Lymphocytes 0.2 thou/uL (1.20-3.40); #Monocytes 0.3 thou/uL (0.11-0.59); %Eosinophils 0.1 % (0.0-10.0); %Lymphocytes 2.1 % (21.0-51.0); %Monocytes 2.8 % (0.0-10.0); Hemoglobin 7.5 g/dL (12.0-16.0); Mean Corpuscular HGB CONC 32.4 g/dL (32.0-36.0); Mean Corpuscular Hemoglobin 33.1 pg (27.0-31.0); Mean Platelet Volume 7.5 fL (7.4-10.4); Platelet Count 239 thou/uL (130-400); RBC Distribution Width 12.7 % (11.5-14.5); Red Blood Cell (RBC) Count 2.28 mill/uL (4.20-5.40); White Blood Cell (WBC) Count 11.6 thou/uL (4.8-10.8)
[2022-03-27 07:31] LABS: Hemoglobin 7.7 g/dL (12.0-16.0)
[2022-03-27] MEDS ORDERED: Insulin Glargine 30 UNITS/0.3 ML VIAL SC SCH (07:45)
[2022-03-27] MEDS ORDERED: Magnesium 2 GM/50 ML(in water) 2 GM in Premix Bag 1 BAG IVPB SCH (08:00)
[2022-03-27] MEDS: Polyethylene Glycol 3350 17 GM Packet PER TUBE SCH (08:16)
[2022-03-27] MEDS: Aspirin Chewable 81 MG TAB PO SCH (08:16)
[2022-03-27] MEDS: Famotidine 40 MG/4 ML VIAL SLOW IVP SCH (08:17)
[2022-03-27] MEDS: Insulin Regular 300 UNITS/3 ML VIAL SC PRN ×3 (08:17→16:41)
[2022-03-27] MEDS: Senokot S 8.6-50 MG TAB PO SCH ×2 (08:46→21:02)
[2022-03-27] MEDS ORDERED: Potassium Chloride 20 MEQ in Premix Bag 1 BAG IVPB SCH (10:30)
[2022-03-27] MEDS ORDERED: Furosemide 20 MG/2 ML VIAL SLOW IVP SCH (10:30)
[2022-03-27] MEDS: cefTRIAXone\\ROCEPHIN 1 GM in Sodium Chloride 0.9% 100 ML IVPB SCH (10:37)
[2022-03-27] MEDS ORDERED: Heparin 10,000 UNITS/ 10 ML VIAL SLOW IVP SCH (10:45)
[2022-03-27 11:24] LABS: Hemoglobin 7.4 g/dL (12.0-16.0); Platelet Count 219 thou/uL (130-400)
[2022-03-27] MEDS: Heparin 25,000 units/D5W 500 ML IVPB SCH (12:37)
[2022-03-27] MEDS ORDERED: Meropenem 1 GM in Sodium Chloride 0.9% 100 ML IVPB SCH (14:00)
[2022-03-27] MEDS: fentaNYL Citrate-0.9 % NaCl/PF 100 ML IV SCH (16:19)
[2022-03-27] MEDS ORDERED: Enoxaparin Sodium 40 MG/0.4 ML SYRINGE SC SCH (17:00)
[2022-03-27 17:13] LABS: Anion Gap 16 mmol/L (10-20); BUN (Urea Nitrogen) 39 mg/dL (9.8-20.1); Calc. Creatinine Clearance 18 mL/min (70-130); Carbon Dioxide 25 mmol/L (23-31); Chloride 101 mmol/L (98-107); Glucose 184 mg/dL (83-110); Potassium 3.1 mmol/L (3.5-5.1); Sodium 139 mmol/L (136-145)
[2022-03-27 17:16] LABS: Lactic Acid 4.6 mmol/L (0.5-2.2)
[2022-03-27] MEDS ORDERED: VANCOMYCIN 1.25 GM/250 ML BAG IVPB SCH ×2 (18:00)
[2022-03-27] MEDS ORDERED: Potassium Chloride 20 MEQ TAB PO SCH (18:15)
[2022-03-27] MEDS: Atorvastatin Calcium 40 MG TAB PO SCH (21:02)
[2022-03-27] MEDS: Potassium Chloride 20 MEQ in Premix Bag 1 BAG IVPB SCH (21:47)
[2022-03-28] MEDS ORDERED: DOBUTamine 500 mg/250 ml 250 ML IVPB SCH (01:00)
[2022-03-28] MEDS: Hydrocortisone Sod Succ/PF 100 mg/2 ml Vial IVP SCH ×4 (01:15→18:48)
[2022-03-28] MEDS: Potassium Chloride 20 MEQ in Premix Bag 1 BAG IVPB SCH (01:18)
[2022-03-28] MEDS: Meropenem 1 GM in Sodium Chloride 0.9% 100 ML IVPB SCH ×2 (02:45→15:09)
[2022-03-28] MEDS: Insulin Regular 300 UNITS/3 ML VIAL SC PRN ×3 (04:43→12:23)
[2022-03-28 05:27] LABS: Lactic Acid 1.6 mmol/L (0.5-2.2)
[2022-03-28 05:41] LABS: Band 44 % (5-11); Burr Cells SLIGHT = 2-5 cells (100X) (0-1/hpf); Hemoglobin 9.5 g/dL (12.0-16.0); Lymphocytes 5 % (21-51); MDiff Complete? YES; Mean Corpuscular HGB CONC 33.4 g/dL (32.0-36.0); Mean Corpuscular Hemoglobin 33.6 pg (27.0-31.0); Mean Platelet Volume 8.4 fL (7.4-10.4); Monocytes 1 % (0-10); Neutrophil 50 % (42-75); Platelet Count 139 thou/uL (130-400); RBC Distribution Width 13.1 % (11.5-14.5); Red Blood Cell (RBC) Count 2.83 mill/uL (4.20-5.40); White Blood Cell (WBC) Count 11.6 thou/uL (4.8-10.8)
[2022-03-28 06:23] LABS: ALT (SGPT) 270 U/L (8-55); AST (SGOT) 96 U/L (5-34); Albumin 2.9 g/dL (3.4-4.8); Alkaline Phosphatase 111 U/L (40-110); BUN (Urea Nitrogen) 49 mg/dL (9.8-20.1); Bilirubin, Total 1.2 mg/dL (0.2-1.2); Calc. Creatinine Clearance 16 mL/min (70-130); Calcium 8.5 mg/dL (7.8-10.44); Carbon Dioxide 24 mmol/L (23-31); Chloride 103 mmol/L (98-107); Globulin 1.9 g/dL (2.4-3.5); Glucose 301 mg/dL (83-110); Magnesium 2.8 mg/dL (1.6-2.6); Potassium 6.5 mmol/L (3.5-5.1); Protein, Total 4.8 g/dL (5.8-8.1); Sodium 137 mmol/L (136-145)
[2022-03-28 07:51] LABS: Potassium 5.4 mmol/L (3.5-5.1)
[2022-03-28] MEDS ORDERED: Sodium Chloride 0.9% 1,000 ML IV SCH ×2 (08:15→22:15)
[2022-03-28] MEDS ORDERED: Norepinephrine 8 MG/0.9% NS 250 ML IVPB SCH (08:15)
[2022-03-28] MEDS: Vasopressin 20 UNIT, Admixture Fee 1 EACH in Sodium Chloride 0.9% 50 ML IV SCH ×3 (08:56→19:25)
[2022-03-28] MEDS ORDERED: Insulin Glargine 30 UNITS/0.3 ML VIAL SC SCH (09:00)
[2022-03-28] MEDS: Polyethylene Glycol 3350 17 GM Packet PER TUBE SCH (09:30)
[2022-03-28] MEDS: Senokot S 8.6-50 MG TAB PO SCH ×2 (09:30→21:02)
[2022-03-28] MEDS: Aspirin Chewable 81 MG TAB PO SCH (09:30)
[2022-03-28] MEDS: Famotidine/PF 20 mg/2ml Vial SLOW IVP SCH (09:30)
[2022-03-28] MEDS: Famotidine 40 MG/4 ML VIAL SLOW IVP SCH (09:34)
[2022-03-28] MEDS ORDERED: Vancomycin 1 GM in Sodium Chloride 0.9% 100 ML IVPB SCH (10:45)
[2022-03-28] MEDS ORDERED: Furosemide 20 MG/2 ML VIAL SLOW IVP SCH (11:45)
[2022-03-28 12:14] LABS: Anion Gap 14 mmol/L (10-20); BUN (Urea Nitrogen) 53 mg/dL (9.8-20.1); Calc. Creatinine Clearance 16 mL/min (70-130); Calcium 9.1 mg/dL (7.8-10.44); Carbon Dioxide 26 mmol/L (23-31); Chloride 101 mmol/L (98-107); Glucose 281 mg/dL (83-110); Sodium 136 mmol/L (136-145)
[2022-03-28 16:45] LABS: Anion Gap 12 mmol/L (10-20); BUN (Urea Nitrogen) 56 mg/dL (9.8-20.1); Calc. Creatinine Clearance 17 mL/min (70-130); Calcium 9.4 mg/dL (7.8-10.44); Carbon Dioxide 28 mmol/L (23-31); Chloride 103 mmol/L (98-107); Glucose 152 mg/dL (83-110); Magnesium 2.6 mg/dL (1.6-2.6); Potassium 4.4 mmol/L (3.5-5.1); Sodium 139 mmol/L (136-145)
[2022-03-28 17:28] LABS: Vancomycin, Random 26.9 ug/mL (See Comment)
[2022-03-28] MEDS: Heparin 25,000 units/D5W 500 ML IVPB SCH (20:54)
[2022-03-28] MEDS: Insulin Glargine 30 UNITS/0.3 ML VIAL SC SCH (21:02)
[2022-03-28] MEDS: Atorvastatin Calcium 40 MG TAB PO SCH (21:02)
[2022-03-29] MEDS: Hydrocortisone Sod Succ/PF 100 mg/2 ml Vial IVP SCH ×2 (00:51→05:23)
[2022-03-29] MEDS: Meropenem 1 GM in Sodium Chloride 0.9% 100 ML IVPB SCH ×2 (01:40→14:59)
[2022-03-29 04:33] LABS: ALT (SGPT) 214 U/L (8-55); AST (SGOT) 90 U/L (5-34); Albumin 2.8 g/dL (3.4-4.8); Alkaline Phosphatase 199 U/L (40-110); Anion Gap 14 mmol/L (10-20); BUN (Urea Nitrogen) 63 mg/dL (9.8-20.1); Bilirubin, Total 0.9 mg/dL (0.2-1.2); Calc. Creatinine Clearance 16 mL/min (70-130); Carbon Dioxide 29 mmol/L (23-31); Chloride 100 mmol/L (98-107); Globulin 2.3 g/dL (2.4-3.5); Glucose 161 mg/dL (83-110); Magnesium 2.5 mg/dL (1.6-2.6); Phosphorus 3.4 mg/dL (2.3-4.7); Potassium 4.1 mmol/L (3.5-5.1); Protein, Total 5.1 g/dL (5.8-8.1); Sodium 139 mmol/L (136-145)
[2022-03-29] MEDS: Sodium Chloride 0.9% 1,000 ML IV SCH (05:26)
[2022-03-29 05:47] LABS: #Lymphocytes 0.4 thou/uL (1.20-3.40); #Monocytes 0.9 thou/uL (0.11-0.59); %Lymphocytes 2.8 % (21.0-51.0); %Neutrophils 91.2 % (42.0-75.0); Hemoglobin 8.9 g/dL (12.0-16.0); Mean Corpuscular HGB CONC 33.4 g/dL (32.0-36.0); Mean Corpuscular Hemoglobin 33.7 pg (27.0-31.0); Mean Platelet Volume 7.7 fL (7.4-10.4); Platelet Count 118 thou/uL (130-400); Platelet Morphology Comment Appears Decreased; RBC Distribution Width 13.4 % (11.5-14.5); Red Blood Cell (RBC) Count 2.65 mill/uL (4.20-5.40); White Blood Cell (WBC) Count 14.3 thou/uL (4.8-10.8)
[2022-03-29 06:31] LABS: PTT 164.7 sec (22.9-36.1)
[2022-03-29] MEDS: Insulin Regular 300 UNITS/3 ML VIAL SC PRN ×2 (08:12→20:13)
[2022-03-29 08:35] LABS: PTT 135.7 sec (22.9-36.1)
[2022-03-29] MEDS ORDERED: Argatroban (Non -ESRD) 250 MG in Sodium Chloride 0.9% 250 ML 250 ML IVPB SCH (09:00)
[2022-03-29] MEDS: Famotidine/PF 20 mg/2ml Vial SLOW IVP SCH (10:51)
[2022-03-29] MEDS: Polyethylene Glycol 3350 17 GM Packet PER TUBE SCH (10:51)
[2022-03-29] MEDS: Aspirin Chewable 81 MG TAB PO SCH (10:51)
[2022-03-29] MEDS: Insulin Glargine 30 UNITS/0.3 ML VIAL SC SCH ×2 (10:51→21:27)
[2022-03-29] MEDS: Senokot S 8.6-50 MG TAB PO SCH ×2 (10:52→21:28)
[2022-03-29] MEDS: Morphine 2 MG/ML VIAL SLOW IVP PRN (10:54)
[2022-03-29 11:50] LABS: EPI Greater than 300 sec (67-192)
[2022-03-29 11:51] LABS: Platelet Count 109 thou/uL (130-400)
[2022-03-29 11:56] LABS: ADP 108 sec (39-127); ADP Status Message No Message
[2022-03-29] MEDS ORDERED: Furosemide 40 MG/4 ML VIAL SLOW IVP SCH (12:00)
[2022-03-29] MEDS ORDERED: Hydrocortisone Sod Succ/PF 100 mg/2 ml Vial IVP SCH (21:00)
[2022-03-29] MEDS ORDERED: Bisacodyl 10 MG SUPP PR SCH (21:00)
[2022-03-29] MEDS: Atorvastatin Calcium 40 MG TAB PO SCH (21:28)
[2022-03-29] MEDS: hydrALAZINE 20 MG/ML VIAL SLOW IVP PRN (23:14)
[2022-03-30] MEDS: Insulin Regular 300 UNITS/3 ML VIAL SC PRN (00:18)
[2022-03-30] MEDS: Meropenem 1 GM in Sodium Chloride 0.9% 100 ML IVPB SCH ×2 (02:33→14:53)
[2022-03-30] MEDS: Sodium Chloride 0.9% 1,000 ML IV SCH (03:28)
[2022-03-30 04:25] LABS: #Lymphocytes 0.2 thou/uL (1.20-3.40); #Monocytes 0.9 thou/uL (0.11-0.59); %Eosinophils 0.1 % (0.0-10.0); %Lymphocytes 1.8 % (21.0-51.0); %Monocytes 8.8 % (0.0-10.0); %Neutrophils 89.3 % (42.0-75.0); Hemoglobin 8.7 g/dL (12.0-16.0); Mean Corpuscular HGB CONC 32.6 g/dL (32.0-36.0); Mean Corpuscular Hemoglobin 32.8 pg (27.0-31.0); Mean Platelet Volume 8.4 fL (7.4-10.4); Platelet Count 78 thou/uL (130-400); RBC Distribution Width 12.9 % (11.5-14.5); Red Blood Cell (RBC) Count 2.64 mill/uL (4.20-5.40); White Blood Cell (WBC) Count 10.1 thou/uL (4.8-10.8)
[2022-03-30 04:43] LABS: ALT (SGPT) 181 U/L (8-55); AST (SGOT) 102 U/L (5-34); Albumin 3.2 g/dL (3.4-4.8); Alkaline Phosphatase 256 U/L (40-110); Anion Gap 14 mmol/L (10-20); BUN (Urea Nitrogen) 70 mg/dL (9.8-20.1); Bilirubin, Total 0.8 mg/dL (0.2-1.2); Calc. Creatinine Clearance 15 mL/min (70-130); Calcium 10.2 mg/dL (7.8-10.44); Carbon Dioxide 35 mmol/L (23-31); Chloride 98 mmol/L (98-107); Globulin 2.6 g/dL (2.4-3.5); Glucose 152 mg/dL (83-110); Protein, Total 5.8 g/dL (5.8-8.1); Sodium 144 mmol/L (136-145)
[2022-03-30 04:49] LABS: Potassium 2.8 mmol/L (3.5-5.1)
[2022-03-30] MEDS ORDERED: Electrolyte Replacement Protocol FS PRN (05:15)
[2022-03-30] MEDS: Potassium Chloride 20 MEQ in Premix Bag 1 BAG IVPB SCH ×3 (05:31→22:46)
[2022-03-30 05:43] LABS: Magnesium 2.2 mg/dL (1.6-2.6)
[2022-03-30] MEDS ORDERED: Hydrocortisone Sod Succ/PF 100 mg/2 ml Vial IVP SCH (09:00)
[2022-03-30] MEDS: Polyethylene Glycol 3350 17 GM Packet PER TUBE SCH (09:11)
[2022-03-30] MEDS: Senokot S 8.6-50 MG TAB PO SCH ×2 (09:11→22:03)
[2022-03-30] MEDS ORDERED: AcetaZOLAMIDE 250 MG TAB PO SCH (10:15)
[2022-03-30] MEDS: Famotidine/PF 20 mg/2ml Vial SLOW IVP SCH (10:31)
[2022-03-30] MEDS: Aspirin Chewable 81 MG TAB PO SCH (10:31)
[2022-03-30] MEDS: Insulin Glargine 30 UNITS/0.3 ML VIAL SC SCH ×2 (10:32→22:04)
[2022-03-30] MEDS: hydrALAZINE 20 MG/ML VIAL SLOW IVP SCH ×2 (12:21→18:50)
[2022-03-30 14:10] LABS: #Lymphocytes 0.6 thou/uL (1.20-3.40); #Monocytes 1.2 thou/uL (0.11-0.59); #Neutrophils 7.9 thou/uL (1.40-6.50); %Basophils 0.5 % (0.0-1.0); %Eosinophils 0.1 % (0.0-10.0); %Lymphocytes 5.7 % (21.0-51.0); %Neutrophils 81.8 % (42.0-75.0); Hemoglobin 9.3 g/dL (12.0-16.0); Mean Corpuscular HGB CONC 33.8 g/dL (32.0-36.0); Mean Platelet Volume 8.5 fL (7.4-10.4); Platelet Count 77 thou/uL (130-400); Red Blood Cell (RBC) Count 2.73 mill/uL (4.20-5.40); White Blood Cell (WBC) Count 9.6 thou/uL (4.8-10.8)
[2022-03-30 14:28] LABS: Anion Gap 16 mmol/L (10-20); BUN (Urea Nitrogen) 69 mg/dL (9.8-20.1); Calc. Creatinine Clearance 17 mL/min (70-130); Calcium 10.1 mg/dL (7.8-10.44); Carbon Dioxide 31 mmol/L (23-31); Chloride 101 mmol/L (98-107); Glucose 162 mg/dL (83-110); Sodium 145 mmol/L (136-145)
[2022-03-30 15:06] LABS: Magnesium 2.2 mg/dL (1.6-2.6)
[2022-03-30] MEDS: Atorvastatin Calcium 40 MG TAB PO SCH (22:03)
[2022-03-31] MEDS: hydrALAZINE 20 MG/ML VIAL SLOW IVP SCH ×4 (00:49→13:45)
[2022-03-31] MEDS: Potassium Chloride 20 MEQ in Premix Bag 1 BAG IVPB SCH (00:50)
[2022-03-31] MEDS: Meropenem 1 GM in Sodium Chloride 0.9% 100 ML IVPB SCH ×2 (01:45→15:25)
[2022-03-31] MEDS: Sodium Chloride 0.9% 1,000 ML IV SCH ×2 (01:48→13:30)
[2022-03-31 03:54] LABS: #Eosinphils 0.1 thou/uL (0.0-0.7); #Lymphocytes 0.7 thou/uL (1.20-3.40); #Monocytes 0.9 thou/uL (0.11-0.59); #Neutrophils 7.3 thou/uL (1.40-6.50); %Eosinophils 0.7 % (0.0-10.0); %Lymphocytes 7.6 % (21.0-51.0); %Monocytes 9.7 % (0.0-10.0); Hemoglobin 9.5 g/dL (12.0-16.0); Mean Corpuscular HGB CONC 32.9 g/dL (32.0-36.0); Mean Corpuscular Hemoglobin 33.5 pg (27.0-31.0); Mean Platelet Volume 8.3 fL (7.4-10.4); Platelet Count 93 thou/uL (130-400); RBC Distribution Width 13.1 % (11.5-14.5); Red Blood Cell (RBC) Count 2.84 mill/uL (4.20-5.40); White Blood Cell (WBC) Count 8.9 thou/uL (4.8-10.8)
[2022-03-31 04:04] LABS: ALT (SGPT) 155 U/L (8-55); AST (SGOT) 120 U/L (5-34); Albumin 3.8 g/dL (3.4-4.8); Alkaline Phosphatase 341 U/L (40-110); Anion Gap 15 mmol/L (10-20); BUN (Urea Nitrogen) 72 mg/dL (9.8-20.1); Bilirubin, Total 0.9 mg/dL (0.2-1.2); Calc. Creatinine Clearance 18 mL/min (70-130); Calcium 10.4 mg/dL (7.8-10.44); Carbon Dioxide 28 mmol/L (23-31); Chloride 108 mmol/L (98-107); Globulin 2.6 g/dL (2.4-3.5); Glucose 159 mg/dL (83-110); Magnesium 2.2 mg/dL (1.6-2.6); Potassium 3.7 mmol/L (3.5-5.1); Protein, Total 6.4 g/dL (5.8-8.1); Sodium 147 mmol/L (136-145)
[2022-03-31] MEDS: Acetaminophen 325 MG TAB PO PRN (06:04)
[2022-03-31 07:15] LABS: ALV-art Gradient 66.415 mmHg (0-20); CO2 Tension 46.5 mmHg (35.0-45.0); Calcium, Ionized (arterial) 1.27 mmol/L (1.12-1.30); Carboxyhemoglobin (COHb) 0.1 gm% (0.0-3.0); Hemoglobin (Hb) 9.9 g/dL (12.0-16.0); O2 Tension (PaO2), arterial 75.1 mmHg (> 70.0); Potassium - ABG Lab 3.34 mmol/L (3.70-5.30); Puncture Site LRA; pH, Arterial 7.43 (7.35-7.45)
[2022-03-31] MEDS ORDERED: Dextrose 5% in Water 1,000 ML IV SCH (09:00)
[2022-03-31] MEDS: Insulin Glargine 30 UNITS/0.3 ML VIAL SC SCH ×2 (09:23→20:13)
[2022-03-31] MEDS: Hydrochlorothiazide 25 MG TAB PO SCH (09:23)
[2022-03-31] MEDS: Aspirin Chewable 81 MG TAB PO SCH (09:23)
[2022-03-31] MEDS: Senokot S 8.6-50 MG TAB PO SCH ×2 (09:23→20:13)
[2022-03-31] MEDS: Polyethylene Glycol 3350 17 GM Packet PER TUBE SCH (09:23)
[2022-03-31] MEDS ORDERED: Micafungin 100 MG in Sodium Chloride 0.9% 100 ML IVPB SCH (11:00)
[2022-03-31] MEDS: Lansoprazole 3 MG/ML ORAL SUSPENSION PER TUBE SCH (11:25)
[2022-03-31] MEDS ORDERED: Furosemide 40 MG/4 ML VIAL SLOW IVP SCH (12:00)
[2022-03-31] MEDS: Insulin Regular 300 UNITS/3 ML VIAL SC PRN (12:54)
[2022-03-31] MEDS ORDERED: Isosorbide Dinitrate 5 MG TAB PO SCH (14:00)
[2022-03-31] MEDS: hydrALAZINE 25 MG TAB PO SCH ×2 (15:25→20:12)
[2022-03-31 15:47] LABS: Heparin-Induced Ab (HITA) 0.06 OD (0.000-0.400)
[2022-03-31 16:27] LABS: Hemoglobin 10.2 g/dL (12.0-16.0); Platelet Count 102 thou/uL (130-400)
[2022-03-31] MEDS: Nystatin 500,000 UNITS/5 ML UDCUP SSW SCH ×2 (17:27→20:11)
[2022-03-31] MEDS: Carvedilol 6.25 MG TAB PO SCH (17:27)
[2022-03-31] MEDS: Atorvastatin Calcium 40 MG TAB PO SCH (20:32)
[2022-04-01] MEDS: Insulin Regular 300 UNITS/3 ML VIAL SC PRN ×3 (00:34→16:32)
[2022-04-01] MEDS: Meropenem 1 GM in Sodium Chloride 0.9% 100 ML IVPB SCH ×2 (01:43→14:20)
[2022-04-01 04:05] LABS: #Eosinphils 0.1 thou/uL (0.0-0.7); #Lymphocytes 0.4 thou/uL (1.20-3.40); #Monocytes 0.6 thou/uL (0.11-0.59); #Neutrophils 7.7 thou/uL (1.40-6.50); %Eosinophils 1.5 % (0.0-10.0); %Lymphocytes 4.1 % (21.0-51.0); %Monocytes 6.7 % (0.0-10.0); %Neutrophils 87.8 % (42.0-75.0); Hemoglobin 9.3 g/dL (12.0-16.0); Mean Corpuscular HGB CONC 33.3 g/dL (32.0-36.0); Mean Corpuscular Hemoglobin 33.6 pg (27.0-31.0); Mean Platelet Volume 8.6 fL (7.4-10.4); Platelet Count 112 thou/uL (130-400); RBC Distribution Width 12.9 % (11.5-14.5); Red Blood Cell (RBC) Count 2.76 mill/uL (4.20-5.40); White Blood Cell (WBC) Count 8.8 thou/uL (4.8-10.8)
[2022-04-01 04:33] LABS: ALT (SGPT) 128 U/L (8-55); AST (SGOT) 123 U/L (5-34); Albumin 2.8 g/dL (3.4-4.8); Alkaline Phosphatase 370 U/L (40-110); Anion Gap 10 mmol/L (10-20); BUN (Urea Nitrogen) 71 mg/dL (9.8-20.1); Bilirubin, Total 0.8 mg/dL (0.2-1.2); Calc. Creatinine Clearance 28 mL/min (70-130); Calcium 8.4 mg/dL (7.8-10.44); Carbon Dioxide 28 mmol/L (23-31); Chloride 112 mmol/L (98-107); Globulin 2.5 g/dL (2.4-3.5); Glucose 134 mg/dL (83-110); Magnesium 1.6 mg/dL (1.6-2.6); Potassium 2.2 mmol/L (3.5-5.1); Protein, Total 5.3 g/dL (5.8-8.1); Sodium 148 mmol/L (136-145)
[2022-04-01] MEDS ORDERED: Magnesium 2 GM/50 ML(in water) 2 GM in Premix Bag 1 BAG IVPB SCH (05:00)
[2022-04-01] MEDS: Potassium Chloride 20 MEQ in Premix Bag 1 BAG IVPB SCH ×4 (05:42→11:13)
[2022-04-01] MEDS: Polyethylene Glycol 3350 17 GM Packet PER TUBE SCH (08:16)
[2022-04-01] MEDS: Carvedilol 6.25 MG TAB PO SCH ×2 (08:16→16:31)
[2022-04-01] MEDS: hydrALAZINE 25 MG TAB PO SCH ×3 (08:16→20:41)
[2022-04-01] MEDS: Aspirin Chewable 81 MG TAB PO SCH (08:16)
[2022-04-01] MEDS: Nystatin 500,000 UNITS/5 ML UDCUP SSW SCH ×4 (08:16→20:42)
[2022-04-01] MEDS: Hydrochlorothiazide 25 MG TAB PO SCH (08:16)
[2022-04-01] MEDS: Senokot S 8.6-50 MG TAB PO SCH ×2 (08:16→20:42)
[2022-04-01] MEDS: Lansoprazole 3 MG/ML ORAL SUSPENSION PER TUBE SCH (08:17)
[2022-04-01] MEDS: Insulin Glargine 30 UNITS/0.3 ML VIAL SC SCH ×2 (08:17→20:42)
[2022-04-01] MEDS: Spironolactone 25 MG TAB PO SCH (08:52)
[2022-04-01] MEDS: Sacubitril 49 MG/Valsartan 51 MG TABLET PO SCH ×2 (08:55→20:41)
[2022-04-01] MEDS: Sodium Chloride 0.9% 1,000 ML IV SCH (14:02)
[2022-04-01 16:39] LABS: Anion Gap 13 mmol/L (10-20); BUN (Urea Nitrogen) 87 mg/dL (9.8-20.1); Calc. Creatinine Clearance 20 mL/min (70-130); Calcium 10.2 mg/dL (7.8-10.44); Carbon Dioxide 27 mmol/L (23-31); Chloride 107 mmol/L (98-107); Glucose 284 mg/dL (83-110); Magnesium 2.8 mg/dL (1.6-2.6); Sodium 143 mmol/L (136-145)
[2022-04-01] MEDS: Atorvastatin Calcium 40 MG TAB PO SCH (20:41)
[2022-04-02] MEDS: Meropenem 1 GM in Sodium Chloride 0.9% 100 ML IVPB SCH ×2 (02:46→15:17)
[2022-04-02 04:00] LABS: #Eosinphils 0.2 thou/uL (0.0-0.7); #Lymphocytes 0.5 thou/uL (1.20-3.40); #Monocytes 0.6 thou/uL (0.11-0.59); %Eosinophils 1.9 % (0.0-10.0); %Lymphocytes 5.8 % (21.0-51.0); %Monocytes 6.8 % (0.0-10.0); %Neutrophils 85.5 % (42.0-75.0); Hemoglobin 11.1 g/dL (12.0-16.0); Mean Corpuscular HGB CONC 33.2 g/dL (32.0-36.0); Mean Corpuscular Hemoglobin 33.7 pg (27.0-31.0); Mean Platelet Volume 9.7 fL (7.4-10.4); Platelet Count 151 thou/uL (130-400); White Blood Cell (WBC) Count 9.3 thou/uL (4.8-10.8)
[2022-04-02 04:27] LABS: ALT (SGPT) 144 U/L (8-55); AST (SGOT) 175 U/L (5-34); Albumin 2.9 g/dL (3.4-4.8); Alkaline Phosphatase 451 U/L (40-110); Anion Gap 15 mmol/L (10-20); BUN (Urea Nitrogen) 94 mg/dL (9.8-20.1); Bilirubin, Total 0.7 mg/dL (0.2-1.2); Calc. Creatinine Clearance 21 mL/min (70-130); Calcium 10.1 mg/dL (7.8-10.44); Carbon Dioxide 25 mmol/L (23-31); Chloride 109 mmol/L (98-107); Globulin 3.4 g/dL (2.4-3.5); Glucose 177 mg/dL (83-110); Magnesium 2.6 mg/dL (1.6-2.6); Potassium 4.1 mmol/L (3.5-5.1); Protein, Total 6.3 g/dL (5.8-8.1); Sodium 145 mmol/L (136-145)
[2022-04-02] MEDS: hydrALAZINE 25 MG TAB PO SCH (08:29)
[2022-04-02] MEDS: Hydrochlorothiazide 25 MG TAB PO SCH (08:30)
[2022-04-02 08:58] LABS: Actual Bicarbonate (HCO3a) 24.8 mEq/L (22-28); Base Excess (BEa) 1.6 mEq/L (-2.0 to +3.0); CO2 Tension 34.2 mmHg (35.0-45.0); Calcium, Ionized (arterial) 1.29 mmol/L (1.12-1.30); Carboxyhemoglobin (COHb) 0.4 gm% (0.0-3.0); Hemoglobin (Hb) 11.5 g/dL (12.0-16.0); O2 Tension (PaO2), arterial 70.5 mmHg (> 70.0); Potassium - ABG Lab 3.46 mmol/L (3.70-5.30); Puncture Site LRA; pH, Arterial 7.48 (7.35-7.45)
[2022-04-02] MEDS ORDERED: Sodium Chloride 0.45% 500 ML IV SCH (10:00)
[2022-04-02] MEDS: Spironolactone 25 MG TAB PO SCH (11:01)
[2022-04-02] MEDS: Carvedilol 6.25 MG TAB PO SCH ×2 (11:02→17:53)
[2022-04-02] MEDS: Aspirin Chewable 81 MG TAB PO SCH (11:02)
[2022-04-02] MEDS: Lansoprazole 3 MG/ML ORAL SUSPENSION PER TUBE SCH (11:03)
[2022-04-02] MEDS: Senokot S 8.6-50 MG TAB PO SCH ×2 (11:03→20:36)
[2022-04-02] MEDS: Polyethylene Glycol 3350 17 GM Packet PER TUBE SCH (11:03)
[2022-04-02] MEDS: Sacubitril 49 MG/Valsartan 51 MG TABLET PO SCH ×2 (11:03→20:35)
[2022-04-02] MEDS: Nystatin 500,000 UNITS/5 ML UDCUP SSW SCH ×4 (11:03→20:36)
[2022-04-02] MEDS: Insulin Regular 300 UNITS/3 ML VIAL SC PRN ×2 (11:16→17:55)
[2022-04-02] MEDS: Insulin Glargine 30 UNITS/0.3 ML VIAL SC SCH ×2 (11:17→20:44)
[2022-04-02] MEDS: Sodium Chloride 0.9% 1,000 ML IV SCH (15:17)
[2022-04-02 15:32] LABS: Hemoglobin 11.1 g/dL (12.0-16.0); Platelet Count 193 thou/uL (130-400)
[2022-04-02 15:51] LABS: Anion Gap 13 mmol/L (10-20); BUN (Urea Nitrogen) 95 mg/dL (9.8-20.1); Calc. Creatinine Clearance 23 mL/min (70-130); Calcium 9.8 mg/dL (7.8-10.44); Carbon Dioxide 26 mmol/L (23-31); Chloride 107 mmol/L (98-107); Glucose 169 mg/dL (83-110); Magnesium 2.2 mg/dL (1.6-2.6); Potassium 3.3 mmol/L (3.5-5.1); Sodium 143 mmol/L (136-145)
[2022-04-02] MEDS: Atorvastatin Calcium 40 MG TAB PO SCH (20:35)
[2022-04-02] MEDS: Apixaban 5 MG TAB PO SCH (20:36)
[2022-04-03] MEDS: Meropenem 1 GM in Sodium Chloride 0.9% 100 ML IVPB SCH ×2 (02:31→13:21)
[2022-04-03 04:30] LABS: #Eosinphils 0.2 thou/uL (0.0-0.7); #Lymphocytes 0.7 thou/uL (1.20-3.40); #Monocytes 0.6 thou/uL (0.11-0.59); #Neutrophils 6.6 thou/uL (1.40-6.50); %Basophils 0.1 % (0.0-1.0); %Eosinophils 2.4 % (0.0-10.0); %Lymphocytes 8.8 % (21.0-51.0); %Neutrophils 80.8 % (42.0-75.0); Hemoglobin 10.1 g/dL (12.0-16.0); Mean Corpuscular Hemoglobin 32.8 pg (27.0-31.0); Mean Corpuscular Volume 99.4 fL (78.0-98.0); Mean Platelet Volume 9.6 fL (7.4-10.4); Platelet Count 207 thou/uL (130-400); RBC Distribution Width 12.9 % (11.5-14.5); Red Blood Cell (RBC) Count 3.07 mill/uL (4.20-5.40); White Blood Cell (WBC) Count 8.1 thou/uL (4.8-10.8)
[2022-04-03 04:57] LABS: ALT (SGPT) 225 U/L (8-55); AST (SGOT) 336 U/L (5-34); Albumin 2.8 g/dL (3.4-4.8); Alkaline Phosphatase 532 U/L (40-110); Anion Gap 13 mmol/L (10-20); BUN (Urea Nitrogen) 98 mg/dL (9.8-20.1); Bilirubin, Total 0.7 mg/dL (0.2-1.2); Calc. Creatinine Clearance 21 mL/min (70-130); Calcium 9.4 mg/dL (7.8-10.44); Carbon Dioxide 27 mmol/L (23-31); Chloride 105 mmol/L (98-107); Glucose 243 mg/dL (83-110); Magnesium 2.1 mg/dL (1.6-2.6); Potassium 3.4 mmol/L (3.5-5.1); Protein, Total 5.8 g/dL (5.8-8.1); Sodium 142 mmol/L (136-145)
[2022-04-03] MEDS: Insulin Regular 300 UNITS/3 ML VIAL SC PRN ×2 (05:11→18:29)
[2022-04-03] MEDS ORDERED: Milrinone 20 MG in Sodium Chloride 0.9% 100 ML IVPB SCH (08:15)
[2022-04-03] MEDS ORDERED: Potassium Chloride 20 MEQ in Premix Bag 1 BAG IVPB SCH (08:15)
[2022-04-03] MEDS ORDERED: Milrinone Lactate/D5W 20 MG in Premix Bag 1 BAG IVPB SCH (08:30)
[2022-04-03] MEDS: Potassium Chloride 20 MEQ in Premix Bag 1 BAG IVPB SCH ×2 (08:52→13:21)
[2022-04-03] MEDS: Nystatin 500,000 UNITS/5 ML UDCUP SSW SCH ×4 (08:52→22:09)
[2022-04-03] MEDS: Aspirin Chewable 81 MG TAB PO SCH (08:52)
[2022-04-03] MEDS: Senokot S 8.6-50 MG TAB PO SCH ×2 (08:52→22:11)
[2022-04-03] MEDS: Apixaban 5 MG TAB PO SCH ×2 (08:52→22:10)
[2022-04-03] MEDS: Sacubitril 49 MG/Valsartan 51 MG TABLET PO SCH (08:52)
[2022-04-03] MEDS: Spironolactone 25 MG TAB PO SCH (08:52)
[2022-04-03] MEDS: Lansoprazole 3 MG/ML ORAL SUSPENSION PER TUBE SCH (08:52)
[2022-04-03] MEDS: Insulin Glargine 30 UNITS/0.3 ML VIAL SC SCH ×2 (08:53→22:10)
[2022-04-03] MEDS: Polyethylene Glycol 3350 17 GM Packet PER TUBE SCH (08:53)
[2022-04-03] MEDS: Carvedilol 6.25 MG TAB PO SCH (09:22)
[2022-04-03] MEDS: Sodium Chloride 0.9% 1,000 ML IV SCH (13:23)
[2022-04-03] MEDS ORDERED: Aluminum & Magnesium Hydroxide 60 ML, Lidocaine 2% Viscous Solution 30 ML, diphenhydrAM... SSW PRN (16:40)
[2022-04-03] MEDS ORDERED: Carvedilol 6.25 MG TAB PO SCH (17:00)
[2022-04-03 17:44] LABS: Anion Gap 12 mmol/L (10-20); BUN (Urea Nitrogen) 99 mg/dL (9.8-20.1); Calc. Creatinine Clearance 19 mL/min (70-130); Calcium 9.3 mg/dL (7.8-10.44); Carbon Dioxide 27 mmol/L (23-31); Chloride 107 mmol/L (98-107); Glucose 279 mg/dL (83-110); Potassium 4.2 mmol/L (3.5-5.1); Sodium 142 mmol/L (136-145)
[2022-04-03] MEDS: Atorvastatin Calcium 40 MG TAB PO SCH (22:09)
[2022-04-04] MEDS: Sacubitril 49 MG/Valsartan 51 MG TABLET PO SCH ×3 (00:24→20:33)
[2022-04-04] MEDS: Meropenem 1 GM in Sodium Chloride 0.9% 100 ML IVPB SCH ×2 (02:07→16:37)
[2022-04-04 04:42] LABS: #Eosinphils 0.2 thou/uL (0.0-0.7); #Lymphocytes 1.2 thou/uL (1.20-3.40); #Monocytes 0.8 thou/uL (0.11-0.59); #Neutrophils 7.1 thou/uL (1.40-6.50); %Basophils 0.4 % (0.0-1.0); %Lymphocytes 12.6 % (21.0-51.0); %Monocytes 8.7 % (0.0-10.0); %Neutrophils 76.3 % (42.0-75.0); Hemoglobin 9.3 g/dL (12.0-16.0); Mean Corpuscular Hemoglobin 33.2 pg (27.0-31.0); Mean Platelet Volume 9.7 fL (7.4-10.4); Platelet Count 223 thou/uL (130-400); Red Blood Cell (RBC) Count 2.78 mill/uL (4.20-5.40); White Blood Cell (WBC) Count 9.3 thou/uL (4.8-10.8)
[2022-04-04 05:05] LABS: ALT (SGPT) 244 U/L (8-55); AST (SGOT) 280 U/L (5-34); Albumin 2.8 g/dL (3.4-4.8); Alkaline Phosphatase 568 U/L (40-110); Anion Gap 14 mmol/L (10-20); BUN (Urea Nitrogen) 99 mg/dL (9.8-20.1); Bilirubin, Total 0.7 mg/dL (0.2-1.2); Calc. Creatinine Clearance 18 mL/min (70-130); Calcium 9.1 mg/dL (7.8-10.44); Carbon Dioxide 25 mmol/L (23-31); Chloride 106 mmol/L (98-107); Globulin 2.9 g/dL (2.4-3.5); Glucose 179 mg/dL (83-110); Magnesium 2.1 mg/dL (1.6-2.6); Potassium 3.9 mmol/L (3.5-5.1); Protein, Total 5.7 g/dL (5.8-8.1); Sodium 141 mmol/L (136-145)
[2022-04-04] MEDS: Insulin Regular 300 UNITS/3 ML VIAL SC PRN ×2 (06:29→12:40)
[2022-04-04] MEDS ORDERED: Carvedilol 6.25 MG TAB PO SCH ×2 (08:00→08:30)
[2022-04-04] MEDS: Aspirin Chewable 81 MG TAB PO SCH (08:49)
[2022-04-04] MEDS: Spironolactone 25 MG TAB PO SCH (08:49)
[2022-04-04] MEDS: Apixaban 5 MG TAB PO SCH ×2 (08:49→20:33)
[2022-04-04] MEDS: Lansoprazole 3 MG/ML ORAL SUSPENSION PER TUBE SCH (08:49)
[2022-04-04] MEDS: Insulin Glargine 30 UNITS/0.3 ML VIAL SC SCH ×2 (08:49→20:37)
[2022-04-04] MEDS: Nystatin 500,000 UNITS/5 ML UDCUP SSW SCH ×4 (08:49→20:33)
[2022-04-04] MEDS: Senokot S 8.6-50 MG TAB PO SCH ×2 (08:50→20:34)
[2022-04-04] MEDS: Polyethylene Glycol 3350 17 GM Packet PER TUBE SCH (08:50)
[2022-04-04] MEDS: DOPamine 400 MG/D5W 250 ML 250 ML IVPB SCH (10:25)
[2022-04-04] MEDS: Sodium Chloride 0.9% 1,000 ML IV SCH (15:11)
[2022-04-04] MEDS: Carvedilol 6.25 MG TAB PO SCH (16:37)
[2022-04-04] MEDS: Atorvastatin Calcium 40 MG TAB PO SCH (20:33)
[2022-04-05] MEDS: Meropenem 1 GM in Sodium Chloride 0.9% 100 ML IVPB SCH ×2 (02:19→16:28)
[2022-04-05 03:51] LABS: #Eosinphils 0.1 thou/uL (0.0-0.7); #Lymphocytes 0.9 thou/uL (1.20-3.40); #Monocytes 0.8 thou/uL (0.11-0.59); #Neutrophils 7.3 thou/uL (1.40-6.50); %Basophils 0.5 % (0.0-1.0); %Eosinophils 1.5 % (0.0-10.0); %Lymphocytes 9.5 % (21.0-51.0); %Monocytes 8.6 % (0.0-10.0); Hemoglobin 9.9 g/dL (12.0-16.0); Mean Corpuscular HGB CONC 32.4 g/dL (32.0-36.0); Mean Corpuscular Hemoglobin 32.7 pg (27.0-31.0); Mean Platelet Volume 9.7 fL (7.4-10.4); Platelet Count 245 thou/uL (130-400); RBC Distribution Width 13.1 % (11.5-14.5); Red Blood Cell (RBC) Count 3.02 mill/uL (4.20-5.40); White Blood Cell (WBC) Count 9.1 thou/uL (4.8-10.8)
[2022-04-05 07:30] LABS: Albumin 2.8 g/dL (3.4-4.8)
[2022-04-05 07:31] LABS: Chloride 108 mmol/L (98-107); Potassium 3.7 mmol/L (3.5-5.1); Sodium 143 mmol/L (136-145)
[2022-04-05 07:32] LABS: Calcium 8.9 mg/dL (7.8-10.44); Glucose 99 mg/dL (83-110)
[2022-04-05 07:33] LABS: Globulin 3.2 g/dL (2.4-3.5)
[2022-04-05 07:34] LABS: Anion Gap 15 mmol/L (10-20); Bilirubin, Total 0.8 mg/dL (0.2-1.2); Carbon Dioxide 24 mmol/L (23-31)
[2022-04-05 07:35] LABS: Alkaline Phosphatase 495 U/L (40-110)
[2022-04-05 07:36] LABS: Calc. Creatinine Clearance 24 mL/min (70-130)
[2022-04-05 07:37] LABS: AST (SGOT) 185 U/L (5-34); BUN (Urea Nitrogen) 72 mg/dL (9.8-20.1)
[2022-04-05 07:38] LABS: ALT (SGPT) 217 U/L (8-55)
[2022-04-05] MEDS: Carvedilol 6.25 MG TAB PO SCH ×2 (08:48→16:28)
[2022-04-05] MEDS: Spironolactone 25 MG TAB PO SCH (08:48)
[2022-04-05] MEDS: Aspirin Chewable 81 MG TAB PO SCH (08:49)
[2022-04-05] MEDS: Apixaban 5 MG TAB PO SCH ×2 (08:49→21:45)
[2022-04-05] MEDS: Nystatin 500,000 UNITS/5 ML UDCUP SSW SCH ×4 (08:50→21:46)
[2022-04-05] MEDS: Senokot S 8.6-50 MG TAB PO SCH ×2 (08:52→21:47)
[2022-04-05] MEDS: Polyethylene Glycol 3350 17 GM Packet PER TUBE SCH (08:52)
[2022-04-05] MEDS: Sacubitril 49 MG/Valsartan 51 MG TABLET PO SCH ×2 (08:52→21:45)
[2022-04-05] MEDS: Insulin Glargine 30 UNITS/0.3 ML VIAL SC SCH ×2 (08:53→21:46)
[2022-04-05] MEDS ORDERED: Potassium Chloride 20 MEQ in Premix Bag 1 BAG IVPB SCH (09:00)
[2022-04-05] MEDS ORDERED: Magnesium 2 GM/50 ML(in water) 2 GM in Premix Bag 1 BAG IVPB SCH (09:00)
[2022-04-05] MEDS: Lansoprazole 3 MG/ML ORAL SUSPENSION PER TUBE SCH (09:34)
[2022-04-05] MEDS ORDERED: Sodium Chloride 0.45% 250 ML IV SCH (11:00)
[2022-04-05] MEDS: Sodium Chloride 0.9% 1,000 ML IV SCH (16:15)
[2022-04-05] MEDS: Atorvastatin Calcium 40 MG TAB PO SCH (21:46)
[2022-04-06] MEDS: Meropenem 1 GM in Sodium Chloride 0.9% 100 ML IVPB SCH ×2 (02:19→14:38)
[2022-04-06 04:28] LABS: #Eosinphils 0.2 thou/uL (0.0-0.7); #Lymphocytes 1.1 thou/uL (1.20-3.40); #Monocytes 0.8 thou/uL (0.11-0.59); %Basophils 0.4 % (0.0-1.0); %Eosinophils 1.9 % (0.0-10.0); %Lymphocytes 12.2 % (21.0-51.0); %Neutrophils 76.6 % (42.0-75.0); Hemoglobin 9.2 g/dL (12.0-16.0); Mean Corpuscular HGB CONC 32.7 g/dL (32.0-36.0); Mean Corpuscular Hemoglobin 32.7 pg (27.0-31.0); Mean Corpuscular Volume 99.8 fL (78.0-98.0); Mean Platelet Volume 9.2 fL (7.4-10.4); Platelet Count 309 thou/uL (130-400); RBC Distribution Width 12.9 % (11.5-14.5); Red Blood Cell (RBC) Count 2.83 mill/uL (4.20-5.40); White Blood Cell (WBC) Count 9.1 thou/uL (4.8-10.8)
[2022-04-06 04:52] LABS: ALT (SGPT) 169 U/L (8-55); AST (SGOT) 150 U/L (5-34); Albumin 2.7 g/dL (3.4-4.8); Alkaline Phosphatase 433 U/L (40-110); Anion Gap 12 mmol/L (10-20); BUN (Urea Nitrogen) 59 mg/dL (9.8-20.1); Bilirubin, Total 0.7 mg/dL (0.2-1.2); Calc. Creatinine Clearance 25 mL/min (70-130); Calcium 8.4 mg/dL (7.8-10.44); Carbon Dioxide 23 mmol/L (23-31); Chloride 107 mmol/L (98-107); Glucose 85 mg/dL (83-110); Magnesium 2.6 mg/dL (1.6-2.6); Potassium 4.2 mmol/L (3.5-5.1); Protein, Total 5.7 g/dL (5.8-8.1); Sodium 138 mmol/L (136-145)
[2022-04-06] MEDS: Senokot S 8.6-50 MG TAB PO SCH ×2 (08:50→21:45)
[2022-04-06] MEDS: Polyethylene Glycol 3350 17 GM Packet PER TUBE SCH (08:50)
[2022-04-06] MEDS: Lansoprazole 3 MG/ML ORAL SUSPENSION PER TUBE SCH (08:50)
[2022-04-06] MEDS: Sacubitril 49 MG/Valsartan 51 MG TABLET PO SCH ×2 (08:50→21:45)
[2022-04-06] MEDS: Nystatin 500,000 UNITS/5 ML UDCUP SSW SCH ×4 (08:50→21:44)
[2022-04-06] MEDS: Insulin Glargine 30 UNITS/0.3 ML VIAL SC SCH ×2 (08:51→21:46)
[2022-04-06] MEDS: Spironolactone 25 MG TAB PO SCH (08:51)
[2022-04-06] MEDS: Aspirin Chewable 81 MG TAB PO SCH (08:51)
[2022-04-06] MEDS: Apixaban 5 MG TAB PO SCH ×2 (08:51→21:44)
[2022-04-06] MEDS: Carvedilol 6.25 MG TAB PO SCH ×2 (08:51→16:52)
[2022-04-06] MEDS: Atorvastatin Calcium 40 MG TAB PO SCH (21:44)
[2022-04-06] MEDS ORDERED: Sodium Chloride 0.9% 1,000 ML IV SCH (22:00)
[2022-04-06] MEDS: DOPamine 400 MG/D5W 250 ML 250 ML IVPB SCH (22:19)
[2022-04-07] MEDS: Meropenem 1 GM in Sodium Chloride 0.9% 100 ML IVPB SCH (02:22)
[2022-04-07 04:35] LABS: #Eosinphils 0.1 thou/uL (0.0-0.7); #Lymphocytes 1.6 thou/uL (1.20-3.40); #Monocytes 0.9 thou/uL (0.11-0.59); #Neutrophils 6.1 thou/uL (1.40-6.50); %Basophils 0.5 % (0.0-1.0); %Eosinophils 1.7 % (0.0-10.0); %Lymphocytes 18.4 % (21.0-51.0); %Monocytes 10.3 % (0.0-10.0); %Neutrophils 69.1 % (42.0-75.0); Hemoglobin 8.6 g/dL (12.0-16.0); Mean Corpuscular HGB CONC 33.1 g/dL (32.0-36.0); Mean Corpuscular Hemoglobin 32.9 pg (27.0-31.0); Mean Corpuscular Volume 99.6 fL (78.0-98.0); Mean Platelet Volume 9.2 fL (7.4-10.4); Platelet Count 327 thou/uL (130-400); Red Blood Cell (RBC) Count 2.62 mill/uL (4.20-5.40); White Blood Cell (WBC) Count 8.8 thou/uL (4.8-10.8)
[2022-04-07 05:26] LABS: ALT (SGPT) 138 U/L (8-55); AST (SGOT) 134 U/L (5-34); Albumin 2.5 g/dL (3.4-4.8); Alkaline Phosphatase 399 U/L (40-110); Anion Gap 12 mmol/L (10-20); BUN (Urea Nitrogen) 49 mg/dL (9.8-20.1); Bilirubin, Total 0.7 mg/dL (0.2-1.2); Calc. Creatinine Clearance 24 mL/min (70-130); Calcium 7.7 mg/dL (7.8-10.44); Carbon Dioxide 23 mmol/L (23-31); Chloride 107 mmol/L (98-107); Globulin 2.4 g/dL (2.4-3.5); Glucose 107 mg/dL (83-110); Magnesium 2.2 mg/dL (1.6-2.6); Potassium 4.3 mmol/L (3.5-5.1); Protein, Total 4.9 g/dL (5.8-8.1); Sodium 138 mmol/L (136-145)
[2022-04-07] MEDS ORDERED: CALCIUM GLUC 1GM/NS 50ML 1 GM in Premix Bag 1 BAG IVPB SCH (08:45)
[2022-04-07] MEDS: Carvedilol 6.25 MG TAB PO SCH ×2 (09:42→18:01)
[2022-04-07] MEDS: Aspirin Chewable 81 MG TAB PO SCH (09:42)
[2022-04-07] MEDS: Senokot S 8.6-50 MG TAB PO SCH ×2 (09:42→20:32)
[2022-04-07] MEDS: Spironolactone 25 MG TAB PO SCH (09:42)
[2022-04-07] MEDS: Nystatin 500,000 UNITS/5 ML UDCUP SSW SCH ×4 (09:43→20:31)
[2022-04-07] MEDS: Insulin Glargine 30 UNITS/0.3 ML VIAL SC SCH ×2 (09:43→20:31)
[2022-04-07] MEDS: Apixaban 5 MG TAB PO SCH ×2 (09:43→20:31)
[2022-04-07] MEDS: Lansoprazole 3 MG/ML ORAL SUSPENSION PER TUBE SCH (09:43)
[2022-04-07] MEDS: Polyethylene Glycol 3350 17 GM Packet PER TUBE SCH (09:44)
[2022-04-07 09:59] LABS: Iron Binding Capacity, Total 278 mcg/dL (265-497)
[2022-04-07 10:00] LABS: Iron 74 ug/dL (50-170)
[2022-04-07] MEDS: Sacubitril 49 MG/Valsartan 51 MG TABLET PO SCH (14:15)
[2022-04-07] MEDS: Atorvastatin Calcium 40 MG TAB PO SCH (20:31)
[2022-04-08 04:50] LABS: #Eosinphils 0.1 thou/uL (0.0-0.7); #Lymphocytes 1.9 thou/uL (1.20-3.40); #Monocytes 0.8 thou/uL (0.11-0.59); #Neutrophils 5.7 thou/uL (1.40-6.50); %Basophils 0.5 % (0.0-1.0); %Eosinophils 1.5 % (0.0-10.0); %Monocytes 9.1 % (0.0-10.0); %Neutrophils 66.8 % (42.0-75.0); Hemoglobin 8.3 g/dL (12.0-16.0); Mean Corpuscular HGB CONC 33.5 g/dL (32.0-36.0); Mean Corpuscular Hemoglobin 33.3 pg (27.0-31.0); Mean Corpuscular Volume 99.4 fL (78.0-98.0); Mean Platelet Volume 8.7 fL (7.4-10.4); Platelet Count 378 thou/uL (130-400); RBC Distribution Width 13.2 % (11.5-14.5); White Blood Cell (WBC) Count 8.5 thou/uL (4.8-10.8)
[2022-04-08 05:23] LABS: ALT (SGPT) 126 U/L (8-55); AST (SGOT) 142 U/L (5-34); Albumin 2.5 g/dL (3.4-4.8); Alkaline Phosphatase 375 U/L (40-110); Anion Gap 13 mmol/L (10-20); BUN (Urea Nitrogen) 37 mg/dL (9.8-20.1); Bilirubin, Total 0.7 mg/dL (0.2-1.2); Calc. Creatinine Clearance 24 mL/min (70-130); Calcium 8.1 mg/dL (7.8-10.44); Carbon Dioxide 21 mmol/L (23-31); Chloride 107 mmol/L (98-107); Globulin 2.8 g/dL (2.4-3.5); Glucose 115 mg/dL (83-110); Protein, Total 5.3 g/dL (5.8-8.1); Sodium 137 mmol/L (136-145)
[2022-04-08] MEDS ORDERED: Magnesium 2 GM/50 ML(in water) 2 GM in Premix Bag 1 BAG IVPB SCH (08:00)
[2022-04-08] MEDS: Lansoprazole 3 MG/ML ORAL SUSPENSION PER TUBE SCH (10:45)
[2022-04-08] MEDS: Aspirin Chewable 81 MG TAB PO SCH (10:45)
[2022-04-08] MEDS: Insulin Glargine 30 UNITS/0.3 ML VIAL SC SCH ×2 (10:45→22:40)
[2022-04-08] MEDS: Apixaban 5 MG TAB PO SCH ×2 (10:45→22:40)
[2022-04-08] MEDS: Nystatin 500,000 UNITS/5 ML UDCUP SSW SCH ×4 (10:45→22:40)
[2022-04-08] MEDS: Spironolactone 25 MG TAB PO SCH (10:52)
[2022-04-08] MEDS: Carvedilol 6.25 MG TAB PO SCH ×2 (10:52→18:36)
[2022-04-08] MEDS: Polyethylene Glycol 3350 17 GM Packet PER TUBE SCH (10:53)
[2022-04-08 10:54] LABS: Troponin I 0.109 ng/mL (< 0.028)
[2022-04-08] MEDS: Senokot S 8.6-50 MG TAB PO SCH ×2 (10:54→22:40)
[2022-04-08] MEDS: Atorvastatin Calcium 40 MG TAB PO SCH (22:40)
[2022-04-09 05:34] LABS: #Basophils 0.1 thou/uL (0.0-0.2); #Eosinphils 0.1 thou/uL (0.0-0.7); #Lymphocytes 2.1 thou/uL (1.20-3.40); #Monocytes 0.9 thou/uL (0.11-0.59); #Neutrophils 5.8 thou/uL (1.40-6.50); %Basophils 0.8 % (0.0-1.0); %Eosinophils 1.4 % (0.0-10.0); %Lymphocytes 23.7 % (21.0-51.0); %Monocytes 9.7 % (0.0-10.0); %Neutrophils 64.4 % (42.0-75.0); Hemoglobin 9.6 g/dL (12.0-16.0); Mean Corpuscular HGB CONC 32.8 g/dL (32.0-36.0); Mean Corpuscular Volume 97.7 fL (78.0-98.0); Platelet Count 365 thou/uL (130-400); RBC Distribution Width 13.6 % (11.5-14.5); Red Blood Cell (RBC) Count 3.01 mill/uL (4.20-5.40); White Blood Cell (WBC) Count 8.9 thou/uL (4.8-10.8)
[2022-04-09 05:59] LABS: ALT (SGPT) 104 U/L (8-55); AST (SGOT) 103 U/L (5-34); Albumin 2.5 g/dL (3.4-4.8); Alkaline Phosphatase 333 U/L (40-110); Anion Gap 12 mmol/L (10-20); BUN (Urea Nitrogen) 35 mg/dL (9.8-20.1); Bilirubin, Total 0.7 mg/dL (0.2-1.2); Calc. Creatinine Clearance 22 mL/min (70-130); Calcium 7.9 mg/dL (7.8-10.44); Carbon Dioxide 21 mmol/L (23-31); Chloride 105 mmol/L (98-107); Estimated GFR 42; Globulin 2.7 g/dL (2.4-3.5); Glucose 75 mg/dL (83-110); Magnesium 2.6 mg/dL (1.6-2.6); Protein, Total 5.2 g/dL (5.8-8.1); Sodium 134 mmol/L (136-145)
[2022-04-09] MEDS ORDERED: Spironolactone 25 MG TAB PO SCH (09:15)
[2022-04-09] MEDS: Carvedilol 6.25 MG TAB PO SCH ×2 (11:16→17:13)
[2022-04-09] MEDS: Aspirin Chewable 81 MG TAB PO SCH (11:16)
[2022-04-09] MEDS: Apixaban 5 MG TAB PO SCH ×2 (11:16→20:53)
[2022-04-09] MEDS: Lansoprazole 3 MG/ML ORAL SUSPENSION PER TUBE SCH (11:17)
[2022-04-09] MEDS: Nystatin 500,000 UNITS/5 ML UDCUP SSW SCH ×4 (11:17→20:54)
[2022-04-09] MEDS: Senokot S 8.6-50 MG TAB PO SCH ×2 (11:17→20:53)
[2022-04-09] MEDS: Polyethylene Glycol 3350 17 GM Packet PER TUBE SCH (11:17)
[2022-04-09] MEDS: Insulin Glargine 30 UNITS/0.3 ML VIAL SC SCH ×2 (11:38→20:54)
[2022-04-09] MEDS: Atorvastatin Calcium 40 MG TAB PO SCH (20:54)
[2022-04-10 04:24] LABS: #Basophils 0.1 thou/uL (0.0-0.2); #Eosinphils 0.2 thou/uL (0.0-0.7); #Lymphocytes 2.9 thou/uL (1.20-3.40); #Neutrophils 5.9 thou/uL (1.40-6.50); %Basophils 0.7 % (0.0-1.0); %Eosinophils 2.3 % (0.0-10.0); %Lymphocytes 28.7 % (21.0-51.0); %Monocytes 9.8 % (0.0-10.0); %Neutrophils 58.5 % (42.0-75.0); Hemoglobin 9.7 g/dL (12.0-16.0); Mean Corpuscular HGB CONC 32.6 g/dL (32.0-36.0); Mean Corpuscular Hemoglobin 31.9 pg (27.0-31.0); Mean Corpuscular Volume 97.9 fL (78.0-98.0); Platelet Count 388 thou/uL (130-400); RBC Distribution Width 13.6 % (11.5-14.5); Red Blood Cell (RBC) Count 3.03 mill/uL (4.20-5.40); White Blood Cell (WBC) Count 10.1 thou/uL (4.8-10.8)
[2022-04-10 04:26] VITALS: TEMP 98.2
[2022-04-10 07:33] LABS: ALT (SGPT) 98 U/L (8-55); AST (SGOT) 87 U/L (5-34); Albumin 2.6 g/dL (3.4-4.8); Alkaline Phosphatase 323 U/L (40-110); Anion Gap 13 mmol/L (10-20); BUN (Urea Nitrogen) 35 mg/dL (9.8-20.1); Bilirubin, Total 0.8 mg/dL (0.2-1.2); Calc. Creatinine Clearance 22 mL/min (70-130); Calcium 8.3 mg/dL (7.8-10.44); Carbon Dioxide 20 mmol/L (23-31); Chloride 105 mmol/L (98-107); Estimated GFR 42; Globulin 2.8 g/dL (2.4-3.5); Glucose 77 mg/dL (83-110); Potassium 4.4 mmol/L (3.5-5.1); Protein, Total 5.4 g/dL (5.8-8.1); Sodium 134 mmol/L (136-145)
[2022-04-10] MEDS ORDERED: Spironolactone 25 MG TAB PO SCH (08:00)
[2022-04-10] MEDS: Apixaban 5 MG TAB PO SCH (09:51)
[2022-04-10] MEDS: Carvedilol 6.25 MG TAB PO SCH (09:51)
[2022-04-10] MEDS: Aspirin Chewable 81 MG TAB PO SCH (09:51)
[2022-04-10] MEDS: Insulin Glargine 30 UNITS/0.3 ML VIAL SC SCH (09:52)
[2022-04-10] MEDS: Polyethylene Glycol 3350 17 GM Packet PER TUBE SCH (09:53)
[2022-04-10] MEDS: Nystatin 500,000 UNITS/5 ML UDCUP SSW SCH (09:53)
[2022-04-10 09:54] VITALS: BP 118/58
[2022-04-10] MEDS: Senokot S 8.6-50 MG TAB PO SCH (09:54)
[2022-04-10] MEDS: Lansoprazole 3 MG/ML ORAL SUSPENSION PER TUBE SCH (09:56)
== END 2022-04-10 14:45 | disposition home or self-care (01) | DRG 208 ==
LOC: ERS 08:17 → ERHOLD 10:46 → CCU 16:18 → 2NO 03-23 09:54 → CCU 03-24 12:59 → IMCU/EMU 03-30 09:17
PROVIDERS: ADMIT Hospitalist; ATTEND Hospitalist
PROC: 5A1945Z Respiratory Ventilation, 24-96 Consecutive Hours (ICD-10-PCS; principal; 2022-03-25)
PROC: 3E03329 Introduction of Other Anti-infective into Peripheral Vein, Percutaneous Approach (ICD-10-PCS; 2022-03-25)
PROC: 0BH17EZ Insertion of Endotracheal Airway into Trachea, Via Natural or Artificial Opening (ICD-10-PCS; 2022-03-25)
PROC: 3E033XZ Introduction of Vasopressor into Peripheral Vein, Percutaneous Approach (ICD-10-PCS; 2022-03-25)
PROC: 0D9670Z Drainage of Stomach with Drainage Device, Via Natural or Artificial Opening (ICD-10-PCS; 2022-03-25)
PROC: 3E0G76Z Introduction of Nutritional Substance into Upper GI, Via Natural or Artificial Opening (ICD-10-PCS; 2022-03-25)
PROC: 30233N1 Transfusion of Nonautologous Red Blood Cells into Peripheral Vein, Percutaneous Approach (ICD-10-PCS; 2022-03-27)
DX: I26.99 Other pulmonary embolism without acute cor pulmonale (principal); I21.A1 Myocardial infarction type 2; J96.01 Acute respiratory failure with hypoxia; I50.23 Acute on chronic systolic (congestive) heart failure; G93.41 Metabolic encephalopathy; A41.9 Sepsis, unspecified organism; R65.21 Severe sepsis with septic shock; J69.0 Pneumonitis due to inhalation of food and vomit; R57.0 Cardiogenic shock; N17.9 Acute kidney failure, unspecified; N18.4 Chronic kidney disease, stage 4 (severe); J44.1 Chronic obstructive pulmonary disease with (acute) exacerbation; I51.81 Takotsubo syndrome; E87.1 Hypo-osmolality and hyponatremia; Z20.822 Contact with and (suspected) exposure to COVID-19; E11.22 Type 2 diabetes mellitus with diabetic chronic kidney disease; D63.1 Anemia in chronic kidney disease; K76.1 Chronic passive congestion of liver; E11.65 Type 2 diabetes mellitus with hyperglycemia; T38.0X5A Adverse effect of glucocorticoids and synthetic analogues, initial encounter; E87.5 Hyperkalemia; E87.6 Hypokalemia; R13.10 Dysphagia, unspecified; Z53.8 Procedure and treatment not carried out for other reasons; Z28.311 Partially vaccinated for COVID-19; Z79.51 Long term (current) use of inhaled steroids; Z79.84 Long term (current) use of oral hypoglycemic drugs; Z79.899 Other long term (current) drug therapy; Z87.01 Personal history of pneumonia (recurrent); Z79.82 Long term (current) use of aspirin; Z79.52 Long term (current) use of systemic steroids; Z78.1 Physical restraint status; D69.59 Other secondary thrombocytopenia; Z82.5 Family history of asthma and other chronic lower respiratory diseases
CPT/HCPCS: 36415; 36416; 36430; 36600; 71045; 71046; 74018; 74230; 76604; 76770; 78451; 80048; 80053; 80061; 80202; 81001; 82330; 82542; 82553; 82728; 82805; 83036; 83540; 83550; 83605; 83690; 83735; 83880; 84100; 84145; 84443; 84484; 85014; 85018; 85025; 85049; 85379; 85520; 85576; 85730; 86140; 86850; 86900; 86901; 87040; 87070; 87086; 87205; 90471; 90732; 93005; 93010; 93306; 93970; 94002; 94003; 94640; 94660; 94760; 96365; 96366; 96375; A9540; G0009; J0360; J0456; J0610; J0696; J0883; J1250; J1265; J1644; J1650; J1720; J1815; J1940; J2001; J2060; J2185; J2248; J2260; J2270; J2920; J2930; J3010; J3370; J3475; J3480; J3490; J7050; J7070; J7120; J7620; J7999; P9016; P9045; P9047; S0028; U0003; U0005

== ENCOUNTER 2022-04-12 16:04 | Observation (INO) | payer SELFPAY ==
[2022-04-12 16:25] LABS: #Basophils 0.1 thou/uL (0.0-0.2); #Eosinphils 0.3 thou/uL (0.0-0.7); #Monocytes 1.3 thou/uL (0.11-0.59); #Neutrophils 5.3 thou/uL (1.40-6.50); %Basophils 0.6 % (0.0-1.0); %Eosinophils 2.8 % (0.0-10.0); %Lymphocytes 36.2 % (21.0-51.0); %Monocytes 12.1 % (0.0-10.0); %Neutrophils 48.3 % (42.0-75.0); Hemoglobin 10.5 g/dL (12.0-16.0); Mean Corpuscular HGB CONC 31.8 g/dL (32.0-36.0); Mean Corpuscular Hemoglobin 31.5 pg (27.0-31.0); Mean Corpuscular Volume 98.8 fL (78.0-98.0); Mean Platelet Volume 7.9 fL (7.4-10.4); Platelet Count 448 thou/uL (130-400); RBC Distribution Width 13.6 % (11.5-14.5); Red Blood Cell (RBC) Count 3.34 mill/uL (4.20-5.40); White Blood Cell (WBC) Count 10.9 thou/uL (4.8-10.8)
[2022-04-12 16:35] LABS: INR-International Normal Ratio 1.4; PTT 35.7 sec (22.9-36.1)
[2022-04-12 16:58] LABS: ALT (SGPT) 100 U/L (8-55); AST (SGOT) 84 U/L (5-34); Albumin 3.3 g/dL (3.4-4.8); Alkaline Phosphatase 364 U/L (40-110); Anion Gap 17 mmol/L (10-20); BUN (Urea Nitrogen) 31 mg/dL (9.8-20.1); Bilirubin, Total 0.8 mg/dL (0.2-1.2); Calc. Creatinine Clearance 0 mL/min (70-130); Calcium 8.7 mg/dL (7.8-10.44); Carbon Dioxide 18 mmol/L (23-31); Chloride 102 mmol/L (98-107); Estimated GFR 40; Globulin 3.7 g/dL (2.4-3.5); Glucose 39 mg/dL (83-110); Potassium 5.4 mmol/L (3.5-5.1); Sodium 132 mmol/L (136-145)
[2022-04-12 17:10] LABS: CKMB 4.8 ng/mL (0-6.6)
[2022-04-12] MEDS ORDERED: Calcium Chloride 1 GM/10 ML Abboject SYRINGE ONE (17:31)
[2022-04-12] MEDS ORDERED: Sodium Bicarb 50 MEQ/50 ML Abboject 8.4% SYRINGE ONE (17:31)
[2022-04-12] MEDS ORDERED: Ondansetron ODT 4 MG TAB PO PRN (18:54)
[2022-04-12] MEDS ORDERED: Acetaminophen 325 MG TAB PO PRN (18:54)
[2022-04-12] MEDS ORDERED: Senokot S 8.6-50 MG TAB PO PRN (18:54)
[2022-04-12] MEDS ORDERED: HumaLOG 300 UNITS/3 ML VIAL SC PRN (18:54)
[2022-04-12] MEDS ORDERED: Dextrose 5% in Water 1,000 ML IV PRN (18:54)
[2022-04-12] MEDS ORDERED: Dextrose 50% Abboject 50 ML SYRINGE SLOW IVP PRN (18:54)
[2022-04-12] MEDS ORDERED: HYDROcodone/Acetaminophen 5/325 mg Tablet PO PRN (18:54)
[2022-04-12] MEDS ORDERED: Albuterol 200 PUFF (6.7GM INHALER) INH PRN (19:16)
[2022-04-12] MEDS ORDERED: Atorvastatin Calcium 40 MG TAB PO SCH (21:00)
[2022-04-12] MEDS: Famotidine 20 MG TAB PO SCH (21:39)
[2022-04-12] MEDS: Insulin Glargine 30 UNITS/0.3 ML VIAL SC SCH (21:39)
[2022-04-12] MEDS: Apixaban 5 MG TAB PO SCH (21:48)
[2022-04-12 22:20] VITALS: BMI 20.5
[2022-04-13 04:54] LABS: #Basophils 0.1 thou/uL (0.0-0.2); #Eosinphils 0.3 thou/uL (0.0-0.7); #Lymphocytes 3.2 thou/uL (1.20-3.40); #Monocytes 1.2 thou/uL (0.11-0.59); #Neutrophils 5.6 thou/uL (1.40-6.50); %Basophils 0.8 % (0.0-1.0); %Lymphocytes 30.8 % (21.0-51.0); %Monocytes 11.5 % (0.0-10.0); %Neutrophils 53.8 % (42.0-75.0); Hemoglobin 10.8 g/dL (12.0-16.0); Mean Corpuscular HGB CONC 34.6 g/dL (32.0-36.0); Mean Corpuscular Hemoglobin 33.8 pg (27.0-31.0); Mean Corpuscular Volume 97.7 fL (78.0-98.0); Mean Platelet Volume 8.1 fL (7.4-10.4); Platelet Count 442 thou/uL (130-400); RBC Distribution Width 13.5 % (11.5-14.5); Red Blood Cell (RBC) Count 3.19 mill/uL (4.20-5.40); White Blood Cell (WBC) Count 10.4 thou/uL (4.8-10.8)
[2022-04-13 05:03] LABS: Anion Gap 15 mmol/L (10-20); BUN (Urea Nitrogen) 27 mg/dL (9.8-20.1); Calc. Creatinine Clearance 24 mL/min (70-130); Calcium 9.5 mg/dL (7.8-10.44); Carbon Dioxide 23 mmol/L (23-31); Chloride 104 mmol/L (98-107); Estimated GFR 41; Glucose 70 mg/dL (83-110); Sodium 138 mmol/L (136-145)
[2022-04-13] MEDS ORDERED: Regadenoson 0.4 MG/5 ML SYRINGE ONE (07:30)
[2022-04-13 07:58] LABS: Troponin I 0.119 ng/mL (< 0.028)
[2022-04-13] MEDS ORDERED: Carvedilol 6.25 MG TAB PO SCH (08:00)
[2022-04-13] MEDS ORDERED: Aspirin 81 mg Enteric Coated Tablet PO SCH (09:00)
[2022-04-13] MEDS: Insulin Glargine 30 UNITS/0.3 ML VIAL SC SCH (12:09)
[2022-04-13] MEDS: Apixaban 5 MG TAB PO SCH (12:46)
[2022-04-13] MEDS: Famotidine 20 MG TAB PO SCH (12:48)
[2022-04-13 12:55] VITALS: BP 131/60; TEMP 97.8
== END 2022-04-13 14:45 | disposition home or self-care (01) ==
LOC: ERS 16:04 → 2NO 18:54
PROVIDERS: ADMIT Hospitalist; ATTEND Hospitalist
DX: E11.649 Type 2 diabetes mellitus with hypoglycemia without coma (principal); R94.31 Abnormal electrocardiogram [ECG] [EKG]; N18.4 Chronic kidney disease, stage 4 (severe); I50.21 Acute systolic (congestive) heart failure; J44.1 Chronic obstructive pulmonary disease with (acute) exacerbation; I51.81 Takotsubo syndrome; Z86.711 Personal history of pulmonary embolism; Z79.84 Long term (current) use of oral hypoglycemic drugs; Z79.01 Long term (current) use of anticoagulants; Z79.82 Long term (current) use of aspirin; Z20.822 Contact with and (suspected) exposure to COVID-19
CPT/HCPCS: 36415; 36416; 70450; 71045; 78452; 80048; 80053; 82553; 84484; 85025; 85610; 85730; 93005; 93017; 94760; A9500; G0378; J2785; U0003; U0005

== ENCOUNTER 2022-04-19 17:50 | Inpatient (IN) | payer SELFPAY ==
[~2022-04-19 17:50] MED LIST: Iopamidol-370 76% 500 ML 1 ML ONE
[2022-04-19 18:10] LABS: #Basophils 0.1 thou/uL (0.0-0.2); #Eosinphils 0.3 thou/uL (0.0-0.7); #Lymphocytes 5.3 thou/uL (1.20-3.40); #Monocytes 1.2 thou/uL (0.11-0.59); #Neutrophils 7.5 thou/uL (1.40-6.50); %Basophils 0.7 % (0.0-1.0); %Eosinophils 2.4 % (0.0-10.0); %Lymphocytes 36.7 % (21.0-51.0); %Monocytes 8.1 % (0.0-10.0); Hemoglobin 11.2 g/dL (12.0-16.0); Mean Corpuscular HGB CONC 32.7 g/dL (32.0-36.0); Mean Corpuscular Hemoglobin 32.2 pg (27.0-31.0); Mean Corpuscular Volume 98.7 fL (78.0-98.0); Mean Platelet Volume 7.2 fL (7.4-10.4); Platelet Count 401 thou/uL (130-400); RBC Distribution Width 13.1 % (11.5-14.5); Red Blood Cell (RBC) Count 3.47 mill/uL (4.20-5.40); White Blood Cell (WBC) Count 14.5 thou/uL (4.8-10.8)
[2022-04-19] MEDS ORDERED: Nitroglycerin 2% Ointment 1 INCH/1 GM Packet ONE (18:17)
[2022-04-19 18:30] LABS: ALT (SGPT) 39 U/L (8-55); AST (SGOT) 29 U/L (5-34); Albumin 3.8 g/dL (3.4-4.8); Alkaline Phosphatase 242 U/L (40-110); Anion Gap 17 mmol/L (10-20); BUN (Urea Nitrogen) 15 mg/dL (9.8-20.1); Bilirubin, Total 0.7 mg/dL (0.2-1.2); Calc. Creatinine Clearance 0 mL/min (70-130); Calcium 9.9 mg/dL (7.8-10.44); Carbon Dioxide 18 mmol/L (23-31); Chloride 97 mmol/L (98-107); Estimated GFR 39; Glucose 122 mg/dL (83-110); Protein, Total 7.8 g/dL (5.8-8.1); Sodium 127 mmol/L (136-145)
[2022-04-19] MEDS ORDERED: Midazolam HCl 2 mg/2 ml Vial ONE (18:36)
[2022-04-19] MEDS ORDERED: Dexamethasone 10 MG/ML VIAL ONE (18:37)
[2022-04-19] MEDS ORDERED: Magnesium 2 GM/50 ML BAG (IN WATER) ONE (18:37)
[2022-04-19 18:49] LABS: INR-International Normal Ratio 1.3
[2022-04-19 19:03] LABS: Analyzer IN Cardio ER; Base Excess (BEa) -5.4 mEq/L (-2.0 to +3.0); CO2 Tension 32.8 mmHg (35.0-45.0); Calcium, Ionized (arterial) 1.21 mmol/L (1.12-1.30); Carboxyhemoglobin (COHb) 0.3 gm% (0.0-3.0); Hemoglobin (Hb) 10.5 g/dL (12.0-16.0); O2 Tension (PaO2), arterial 171.4 mmHg (> 70.0); Potassium - ABG Lab 4.52 mmol/L (3.70-5.30); pH, Arterial 7.38 (7.35-7.45)
[2022-04-19 19:03] LABS: Lipase 456 U/L (8-78); Magnesium 1.4 mg/dL (1.6-2.6)
[2022-04-19 19:52] LABS: Puncture Site RRA
[2022-04-19] MEDS ORDERED: Ondansetron PF 4 MG/2 ML Vial IVP PRN (20:44)
[2022-04-19] MEDS ORDERED: Dextrose 5% in Water 1,000 ML IV PRN (20:50)
[2022-04-19] MEDS ORDERED: HumaLOG 300 UNITS/3 ML VIAL SC PRN (20:50)
[2022-04-19] MEDS ORDERED: Dextrose 50% Abboject 50 ML SYRINGE SLOW IVP PRN (20:50)
[2022-04-19 22:56] LABS: SARS-CoV-2 NAA Rapid Test Not Detected (NotDetected)
[2022-04-19] MEDS: methylPREDNISolone Sod Succ 40 MG VIAL IVP SCH (23:15)
[2022-04-19] MEDS: Apixaban 5 MG TAB PO SCH (23:15)
[2022-04-19 23:51] VITALS: BMI 18.6
[2022-04-20 03:59] LABS: #Lymphocytes 0.8 thou/uL (1.20-3.40); #Monocytes 0.1 thou/uL (0.11-0.59); #Neutrophils 4.1 thou/uL (1.40-6.50); %Eosinophils 0.7 % (0.0-10.0); %Lymphocytes 15.7 % (21.0-51.0); %Monocytes 1.5 % (0.0-10.0); Hemoglobin 9.2 g/dL (12.0-16.0); Mean Corpuscular HGB CONC 33.1 g/dL (32.0-36.0); Mean Corpuscular Hemoglobin 32.8 pg (27.0-31.0); Mean Corpuscular Volume 99.1 fL (78.0-98.0); Mean Platelet Volume 7.6 fL (7.4-10.4); Platelet Count 316 thou/uL (130-400); RBC Distribution Width 13.3 % (11.5-14.5); Red Blood Cell (RBC) Count 2.79 mill/uL (4.20-5.40)
[2022-04-20 04:20] LABS: Anion Gap 15 mmol/L (10-20); BUN (Urea Nitrogen) 19 mg/dL (9.8-20.1); Calc. Creatinine Clearance 23 mL/min (70-130); Calcium 9.4 mg/dL (7.8-10.44); Carbon Dioxide 18 mmol/L (23-31); Chloride 98 mmol/L (98-107); Estimated GFR 41; Glucose 211 mg/dL (83-110); Magnesium 2.4 mg/dL (1.6-2.6); Sodium 126 mmol/L (136-145)
[2022-04-20] MEDS: methylPREDNISolone Sod Succ 40 MG VIAL IVP SCH ×3 (06:21→21:43)
[2022-04-20] MEDS: HumaLOG 300 UNITS/3 ML VIAL SC PRN ×2 (06:39→17:19)
[2022-04-20 08:14] LABS: Anion Gap 15 mmol/L (10-20); BUN (Urea Nitrogen) 22 mg/dL (9.8-20.1); Calc. Creatinine Clearance 22 mL/min (70-130); Calcium 9.3 mg/dL (7.8-10.44); Carbon Dioxide 17 mmol/L (23-31); Chloride 100 mmol/L (98-107); Estimated GFR 38; Glucose 177 mg/dL (83-110); Potassium 5.2 mmol/L (3.5-5.1); Sodium 127 mmol/L (136-145)
[2022-04-20] MEDS: Famotidine 20 MG TAB PO SCH (09:31)
[2022-04-20] MEDS: Aspirin Chewable 81 MG TAB PO SCH (09:31)
[2022-04-20] MEDS: Apixaban 5 MG TAB PO SCH ×2 (09:32→21:44)
[2022-04-20] MEDS ORDERED: Doxycycline 100 MG CAP PO SCH (11:15)
[2022-04-20] MEDS: Carvedilol 3.125 MG TAB PO SCH (17:18)
[2022-04-20] MEDS: Atorvastatin Calcium 40 MG TAB PO SCH (21:44)
[2022-04-20] MEDS: Doxycycline 100 MG CAP PO SCH (21:44)
[2022-04-20] MEDS: Insulin Glargine 30 UNITS/0.3 ML VIAL SC SCH (22:12)
[2022-04-21 03:38] LABS: #Lymphocytes 1.4 thou/uL (1.20-3.40); #Monocytes 0.4 thou/uL (0.11-0.59); #Neutrophils 8.9 thou/uL (1.40-6.50); %Eosinophils 0.3 % (0.0-10.0); %Lymphocytes 13.4 % (21.0-51.0); %Monocytes 3.3 % (0.0-10.0); Hemoglobin 8.5 g/dL (12.0-16.0); Mean Corpuscular HGB CONC 33.4 g/dL (32.0-36.0); Mean Corpuscular Hemoglobin 33.3 pg (27.0-31.0); Mean Corpuscular Volume 99.7 fL (78.0-98.0); Mean Platelet Volume 7.7 fL (7.4-10.4); Platelet Count 305 thou/uL (130-400); RBC Distribution Width 13.4 % (11.5-14.5); Red Blood Cell (RBC) Count 2.56 mill/uL (4.20-5.40); White Blood Cell (WBC) Count 10.7 thou/uL (4.8-10.8)
[2022-04-21 03:56] LABS: Phosphorus 4.4 mg/dL (2.3-4.7)
[2022-04-21 03:59] LABS: Anion Gap 15 mmol/L (10-20); BUN (Urea Nitrogen) 32 mg/dL (9.8-20.1); Calc. Creatinine Clearance 19 mL/min (70-130); Calcium 8.9 mg/dL (7.8-10.44); Carbon Dioxide 17 mmol/L (23-31); Chloride 100 mmol/L (98-107); Estimated GFR 33; Glucose 180 mg/dL (83-110); Lipase 341 U/L (8-78); Magnesium 2.3 mg/dL (1.6-2.6); Potassium 4.8 mmol/L (3.5-5.1); Sodium 127 mmol/L (136-145)
[2022-04-21] MEDS: methylPREDNISolone Sod Succ 40 MG VIAL IVP SCH (07:07)
[2022-04-21] MEDS: Apixaban 5 MG TAB PO SCH ×2 (08:00→20:50)
[2022-04-21] MEDS: Folic Acid 1 MG TAB PO SCH (08:00)
[2022-04-21] MEDS: Famotidine 20 MG TAB PO SCH (08:00)
[2022-04-21] MEDS: Carvedilol 3.125 MG TAB PO SCH ×2 (08:01→16:54)
[2022-04-21] MEDS: Doxycycline 100 MG CAP PO SCH ×2 (08:01→20:51)
[2022-04-21] MEDS: Aspirin Chewable 81 MG TAB PO SCH (08:01)
[2022-04-21] MEDS: predniSONE 20 MG TAB PO SCH (16:54)
[2022-04-21] MEDS: HumaLOG 300 UNITS/3 ML VIAL SC PRN (16:55)
[2022-04-21] MEDS: Atorvastatin Calcium 40 MG TAB PO SCH (20:51)
[2022-04-21] MEDS: Insulin Glargine 30 UNITS/0.3 ML VIAL SC SCH (20:51)
[2022-04-22 03:39] LABS: #Eosinphils 0.1 thou/uL (0.0-0.7); #Lymphocytes 2.4 thou/uL (1.20-3.40); #Monocytes 1.2 thou/uL (0.11-0.59); #Neutrophils 8.5 thou/uL (1.40-6.50); %Basophils 0.1 % (0.0-1.0); %Eosinophils 0.5 % (0.0-10.0); %Lymphocytes 19.8 % (21.0-51.0); %Monocytes 9.7 % (0.0-10.0); %Neutrophils 69.9 % (42.0-75.0); Mean Corpuscular HGB CONC 33.4 g/dL (32.0-36.0); Mean Corpuscular Hemoglobin 32.9 pg (27.0-31.0); Mean Corpuscular Volume 98.4 fL (78.0-98.0); Mean Platelet Volume 7.5 fL (7.4-10.4); Platelet Count 324 thou/uL (130-400); RBC Distribution Width 13.4 % (11.5-14.5); Red Blood Cell (RBC) Count 2.74 mill/uL (4.20-5.40); White Blood Cell (WBC) Count 12.1 thou/uL (4.8-10.8)
[2022-04-22 04:05] LABS: Anion Gap 13 mmol/L (10-20); BUN (Urea Nitrogen) 38 mg/dL (9.8-20.1); Calc. Creatinine Clearance 19 mL/min (70-130); Calcium 8.9 mg/dL (7.8-10.44); Carbon Dioxide 18 mmol/L (23-31); Chloride 101 mmol/L (98-107); Estimated GFR 32; Glucose 101 mg/dL (83-110); Lipase 242 U/L (8-78); Magnesium 1.9 mg/dL (1.6-2.6); Potassium 4.1 mmol/L (3.5-5.1); Sodium 128 mmol/L (136-145)
[2022-04-22] MEDS ORDERED: valACYclovir 500 MG TAB PO SCH (09:15)
[2022-04-22] MEDS: Sodium Chloride 0.9% 1,000 ML IV SCH ×2 (09:37→22:33)
[2022-04-22] MEDS: Apixaban 5 MG TAB PO SCH ×2 (10:21→22:33)
[2022-04-22] MEDS: Folic Acid 1 MG TAB PO SCH (10:21)
[2022-04-22] MEDS: Aspirin Chewable 81 MG TAB PO SCH (10:21)
[2022-04-22] MEDS: Famotidine 20 MG TAB PO SCH (10:21)
[2022-04-22] MEDS: Acetaminophen 325 MG TAB PO PRN ×2 (10:22→22:44)
[2022-04-22] MEDS: Carvedilol 3.125 MG TAB PO SCH ×2 (10:23→17:44)
[2022-04-22] MEDS: Doxycycline 100 MG CAP PO SCH (11:40)
[2022-04-22] MEDS: predniSONE 20 MG TAB PO SCH (11:40)
[2022-04-22 16:46] LABS: Bacteria/HPF None Seen HPF (None Seen); Bilirubin Negative (Negative); Blood, Urine Negative (Negative); Clarity Clear (Clear); Glucose, Urine (Dipstick) Normal (Negative); Ketone, Urine Negative (Negative); Leukocyte 250 Leu/uL (Negative); Nitrite Negative (Negative); Protein, Urine (Dipstick) 100 mg/dL (Neg-Trace); RBC/HPF 0-3 HPF (0-3); Specific Gravity, Urine 1.012 (1.002-1.036); Squamous Epithelial 0-3 HPF (0-3); Urobilinogen Normal mg/dL (Less than 2)
[2022-04-22 17:04] LABS: Creatinine, Urine 38.27 mg/dL (47-110)
[2022-04-22] MEDS: Insulin Glargine 30 UNITS/0.3 ML VIAL SC SCH (22:34)
[2022-04-22] MEDS: valACYclovir 500 MG TAB PO SCH (22:34)
[2022-04-22] MEDS: Atorvastatin Calcium 40 MG TAB PO SCH (22:34)
[2022-04-23] MEDS: Sodium Chloride 0.9% 1,000 ML IV SCH ×3 (05:41→22:02)
[2022-04-23 07:37] LABS: Anion Gap 13 mmol/L (10-20); BUN (Urea Nitrogen) 39 mg/dL (9.8-20.1); Calc. Creatinine Clearance 25 mL/min (70-130); Calcium 8.2 mg/dL (7.8-10.44); Carbon Dioxide 17 mmol/L (23-31); Chloride 110 mmol/L (98-107); Estimated GFR 45; Glucose 84 mg/dL (83-110); Potassium 4.2 mmol/L (3.5-5.1); Sodium 136 mmol/L (136-145)
[2022-04-23] MEDS: Aspirin Chewable 81 MG TAB PO SCH (08:12)
[2022-04-23] MEDS: Apixaban 5 MG TAB PO SCH ×2 (08:12→21:25)
[2022-04-23] MEDS: Folic Acid 1 MG TAB PO SCH (08:12)
[2022-04-23] MEDS: Famotidine 20 MG TAB PO SCH (08:12)
[2022-04-23] MEDS: Carvedilol 3.125 MG TAB PO SCH ×2 (08:12→16:29)
[2022-04-23] MEDS: valACYclovir 500 MG TAB PO SCH ×2 (08:12→21:25)
[2022-04-23] MEDS: Atorvastatin Calcium 40 MG TAB PO SCH (21:25)
[2022-04-23] MEDS: Insulin Glargine 30 UNITS/0.3 ML VIAL SC SCH (21:25)
[2022-04-24] MEDS: Acetaminophen 325 MG TAB PO PRN (11:04)
[2022-04-24] MEDS: Apixaban 5 MG TAB PO SCH (11:05)
[2022-04-24] MEDS: valACYclovir 500 MG TAB PO SCH (11:05)
[2022-04-24] MEDS: Folic Acid 1 MG TAB PO SCH (11:06)
[2022-04-24] MEDS: Famotidine 20 MG TAB PO SCH (11:06)
[2022-04-24] MEDS: Carvedilol 3.125 MG TAB PO SCH ×2 (11:07→16:05)
[2022-04-24] MEDS: Aspirin Chewable 81 MG TAB PO SCH (11:07)
[2022-04-24] MEDS: Sodium Chloride 0.9% 1,000 ML IV SCH (11:07)
[2022-04-24 12:03] VITALS: BP 152/67; TEMP 98.8
[2022-04-24] MEDS: HumaLOG 300 UNITS/3 ML VIAL SC PRN (16:06)
== END 2022-04-24 16:40 | disposition home or self-care (01) | DRG 189 ==
LOC: ERS 17:50 → IMCU/EMU 20:33 → 2NO 04-22 20:27
PROVIDERS: ADMIT Internal Medicine; ATTEND Internal Medicine
PROC: 5A09357 Assistance with Respiratory Ventilation, Less than 24 Consecutive Hours, Continuous Positive Airway Pressure (ICD-10-PCS; principal; 2022-04-19)
DX: J96.01 Acute respiratory failure with hypoxia (principal); J44.1 Chronic obstructive pulmonary disease with (acute) exacerbation; I51.81 Takotsubo syndrome; E87.1 Hypo-osmolality and hyponatremia; J90 Pleural effusion, not elsewhere classified; I31.3 Pericardial effusion (noninflammatory); Z20.822 Contact with and (suspected) exposure to COVID-19; J44.9 Chronic obstructive pulmonary disease, unspecified; D63.1 Anemia in chronic kidney disease; N18.30 Chronic kidney disease, stage 3 unspecified; E11.22 Type 2 diabetes mellitus with diabetic chronic kidney disease; E83.42 Hypomagnesemia; I50.9 Heart failure, unspecified; B02.9 Zoster without complications; I49.3 Ventricular premature depolarization; E87.5 Hyperkalemia; Z86.711 Personal history of pulmonary embolism; Z79.01 Long term (current) use of anticoagulants; Z79.82 Long term (current) use of aspirin; Z79.899 Other long term (current) drug therapy; Z79.84 Long term (current) use of oral hypoglycemic drugs; Z79.4 Long term (current) use of insulin; Z83.6 Family history of other diseases of the respiratory system
CPT/HCPCS: 36415; 36416; 36600; 71045; 71275; 80048; 80053; 81001; 82533; 82570; 82805; 83605; 83690; 83735; 83880; 83930; 83935; 84100; 84300; 84443; 84484; 84550; 85025; 85610; 93005; 94660; 96374; 96375; J1100; J1815; J2250; J2920; J3475; J7050; J7512; J7620; Q9967; U0002